=== PATIENT | male | born 1995 | race African-American/Black ===

== ENCOUNTER 2016-12-10 17:13 | Emergency (ER) | payer OTHER ==
[2016-12-10 17:40] VITALS: TEMP 97.9; BMI 16.7
[2016-12-10] MEDS ORDERED: ONDANSETRON 4 MG/2 ML VIAL IVPB ONE (18:36)
[2016-12-10] MEDS ORDERED: SODIUM CHLORIDE 1,000 ML IV STA (18:36)
--- NOTE | 2016-12-10 18:36 | PDOC ---
History of Present Illness - History of Present Illness Initial Comments: 12/10/16 18:39 The patient is a 21 year old male, with a significant past medical history of asthma, who presents to the emergency department with nausea, vomiting, and diarrhea since this morning. The patient reports over 10 episodes of vomit today. He denies noticing blood in his vomit. He also reports at least 5 episodes of watery, brown diarrhea. He denies any sick contacts. He denies chest pain, shortness of breath, headache and dizziness. He denies fever, chills, and constipation. He denies dysuria, frequency, urgency and hematuria. Allergies: NKDA Past surgical history: appendectomy (2016), benign brain tumor removal (2007) Social history: denies toxic habits PCP - Dr. Neda Crane <Alfreda Cleveland - Last Filed: 12/10/16 18:47> <Gladis Combs - Last Filed: 12/10/16 20:46> - General Chief Complaint: Pain, Acute Stated Complaint: NAUSEA/VOMITING Time Seen by Provider: 12/10/16 18:01 Past History <Alfreda Cleveland - Last Filed: 12/10/16 18:47> - Past Medical History Asthma: Yes Thyroid Disease: No - Surgical History Appendectomy: Yes - Psycho/Social/Smoking Cessation Hx Anxiety: No Suicidal Ideation: No Smoking History: Never smoked Have you smoked in the past 12 months: No Hx Alcohol Use: No Drug/Substance Use Hx: No Substance Use Type: None <Gladis Combs - Last Filed: 12/10/16 20:46> - Past Medical History Allergies/Adverse Reactions: Allergies Allergy/AdvReac Type Severity Reaction Status Date / Time cefaclor [From [facility]] Allergy Verified 12/10/16 17:40 Home Medications: Ambulatory Orders NK [No Known Home Medication] 12/10/16 Review of Systems - Review of Systems Able to Perform ROS?: Yes Comments:: 12/10/16 18:39 CONSTITUTIONAL: Absent: fever, chills, diaphoresis, generalized weakness, malaise, loss of appetite HEENT: Absent: rhinorrhea, nasal congestion, throat pain, throat swelling, difficulty swallowing, mouth swelling, ear pain, eye pain, visual Changes CARDIOVASCULAR: Absent: chest pain, syncope, palpitations, irregular heart rate, lightheadedness , peripheral edema RESPIRATORY: Absent: cough, shortness of breath, dyspnea with exertion, orthopnea, wheezing, stridor, hemoptysis GASTROINTESTINAL: (+) abdominal pain, nausea, vomiting, diarrhea. Absent: abdominal distension, constipation, melena, hematochezia GENITOURINARY: Absent: dysuria, frequency, urgency, hesitancy, hematuria, flank pain, genital pain MUSCULOSKELETAL: Absent: myalgia, arthralgia, joint swelling SKIN: Absent: rash, itching, pallor HEMATOLOGIC/IMMUNOLOGIC: Absent: easy bleeding, easy bruising, lymphadenopathy, frequent infections ENDOCRINE: Absent: unexplained weight gain, unexplained weight loss, heat intolerance, cold intolerance NEUROLOGIC: Absent: headache, focal weakness or paresthesias, dizziness, unsteady gait, seizure, mental status changes, bladder or bowel incontinence PSYCHIATRIC: Absent: anxiety, depression, suicidal or homicidal ideation, hallucinations. <Alfreda Cleveland - Last Filed: 12/10/16 18:47> *Physical Exam - Vital Signs Last Vital Signs Temp Pulse Resp BP Pulse Ox 97.9 F 43 L 16 136/77 98 12/10/16 17:35 12/10/16 17:35 12/10/16 17:35 12/10/16 17:35 12/10/16 17:35 - Physical Exam Comments: 12/10/16 18:40 GENERAL: Well developed, well nourished. Awake and alert. No acute distress. HEENT: (+) Dry mucous membranes. Normocephalic, atraumatic. PERRLA, EOMI. No conjunctival pallor. Sclera are non-icteric. Oropharynx is clear. NECK: Supple. Full ROM. No JVD. Carotid pulses 2+ and symmetric, without bruits. No thyromegaly. No lymphadenopathy. CARDIOVASCULAR: (+) slightly tachycardic rate and normal rhythm. No murmurs, rubs, or gallops. Distal pulses are 2+ and symmetric. PULMONARY: No evidence of respiratory distress. Lungs clear to auscultation bilaterally. No wheezing, rales or rhonchi. ABDOMINAL: Non-tender. Soft. Non-distended. No rebound or guarding. No organomegaly. Normoactive bowel sounds. MUSCULOSKELETAL Normal range of motion at all joints. No bony deformities or tenderness. No CVA tenderness. EXTREMITIES: No cyanosis. No clubbing. No edema. No calf tenderness. SKIN: Warm and dry. Normal capillary refill. No rashes. No jaundice. NEUROLOGICAL: Alert, awake, appropriate. Cranial nerves 2-12 intact. Normoreflexic in the upper and lower extremities. Normal speech. Toes are down-going bilaterally. Gait is normal without ataxia. PSYCHIATRIC: Cooperative. Good eye contact. Appropriate mood and affect. <Alfreda Cleveland - Last Filed: 12/10/16 18:47> - Vital Signs Last Vital Signs Temp Pulse Resp BP Pulse Ox 97.9 F 43 L 16 136/77 98 12/10/16 17:35 12/10/16 17:35 12/10/16 17:35 12/10/16 17:35 12/10/16 17:35 <Gladis Combs - Last Filed: 12/10/16 20:46> ED Treatment Course - LABORATORY CBC & Chemistry Diagram: 12/10/16 18:50 12/10/16 18:50 <Gladis Combs - Last Filed: 12/10/16 20:46> *DC/Admit/Observation/Transfer - Attestations Scribe Attestion: 12/10/16 18:40 Documentation prepared by Alfreda Cleveland, acting as ophthalmic medical technician for Gladis Combs MD <Alfreda lCeveland - Last Filed: 12/10/16 18:47> <Gladis Combs - Last Filed: 12/10/16 20:46> Diagnosis at time of Disposition: Gastroenteritis - Discharge Dispostion Disposition: HOME Condition at time of disposition: Stable - Referrals Referrals: Neda Crane MD [Primary Care Provider] - - Patient Instructions Printed Discharge Instructions: DI for Viral Gastroenteritis -- Adult Additional Instructions: please advance your diet as tolerated return for worsening symptom or high fever
[2016-12-10] MEDS ORDERED: ONDANSETRON 4 MG/2 ML VIAL ONE (18:51)
[2016-12-10 19:02] LABS: BASOPHIL 0.7 % (0-2.0); EOSINOPHIL 0.3 % (0-4.5); MCH 30.3 pg (25.7-33.7); MCHC 33.6 g/dl (32.0-35.9); MEAN CELL VOLUME 90.3 fl (80-96); MEAN PLT VOLUME 10.8 fl (7.5-11.1); PLATELET COUNT 187 K/MM3 (134-434); RDW 13.9 % (11.9-15.9)
[2016-12-10 19:33] LABS: ALBUMIN 4.5 g/dl (3.4-5.0); ALK PHOS 58 U/L (45-117); ANION GAP 12 (8-16); BILIRUBIN,TOTAL 0.5 mg/dL (0.2-1.0); CALCIUM 9.6 mg/dL (8.5-10.1); CO2 27 mmol/L (21-32); CREATININE 0.9 mg/dL (0.7-1.3); GLUCOSE,RANDOM 97 mg/dL (74-106); SGOT/AST 16 U/L (15-37); SGPT/ALT 21 U/L (12-78); TOT PROT 7.7 g/dl (6.4-8.2)
[2016-12-10 20:56] VITALS: BP 132/75; PULSE 58
== END 2016-12-10 20:57 | disposition home or self-care (01) ==
LOC: JER 17:13
PROC: 3E0337Z Introduction of Electrolytic and Water Balance Substance into Peripheral Vein, Percutaneous Approach (ICD-10-PCS; principal; 2016-12-10)
PROC: 3E033GC Introduction of Other Therapeutic Substance into Peripheral Vein, Percutaneous Approach (ICD-10-PCS; 2016-12-10)
DX: K52.9 Noninfective gastroenteritis and colitis, unspecified (principal)
CPT/HCPCS: 36415; 80053; 83690; 85025; 96361; 96374; 99284-25

== ENCOUNTER 2017-09-27 13:20 | Observation (INO) | payer OTHER ==
[2017-09-27] MEDS ORDERED: ONDANSETRON *ODT* 4 MG TABLET ONE (13:33)
[2017-09-27] MEDS ORDERED: METOCLOPRAMIDE HCL INJECTION 10 MG/2 ML VIAL IVPUSH ONE (15:00)
[2017-09-27] MEDS ORDERED: SODIUM CHLORIDE 1,000 ML IV STA ×2 (15:00→16:41)
[2017-09-27] MEDS ORDERED: ONDANSETRON 4 MG/2 ML VIAL IVPB ONE ×2 (15:07→16:41)
[2017-09-27] MEDS ORDERED: METOCLOPRAMIDE HCL INJECTION 10 MG/2 ML VIAL ONE (15:08)
--- NOTE | 2017-09-27 15:09 | PDOC ---
History of Present Illness - General Chief Complaint: Vomiting/Diarrhea Stated Complaint: VOMITING Time Seen by Provider: 09/27/17 14:27 - History of Present Illness Initial Comments: 09/27/17 15:08 21 yo M with h/o recurrent emesis who presents with vomitting. Patient reports acute onset of N/V this AM with 10 + episode of non biliary non bloody emesis this AM. Also endorses 3 + episodes of loose watery stools this AM with no blood or dark stools visualized. No abdominal pain, postprandial pain, but endorses decreased appetite.Symptoms nor relived with hot showers. Denies fevers /chills dysuria, hematuria, abdominal pain, chest pain, SOB, lightheadedness, LOC. Endorses recreational marijuana use. Denies other illicit drug use. Denies alcohol use. Denies recent travel, hiking, camping, or recent sick contacts. Denies illicit drug use. H/o prior ED visits for N/V, Abdominal pain. States that he has been seen by GI in past. Past History - Past Medical History Allergies/Adverse Reactions: Allergies Allergy/AdvReac Type Severity Reaction Status Date / Time cefaclor [From [facility]] Allergy Verified 12/10/16 17:40 Home Medications: Ambulatory Orders NK [No Known Home Medication] 12/10/16 Asthma: Yes Thyroid Disease: No - Surgical History Appendectomy: Yes - Suicide/Smoking/Psychosocial Hx Smoking History: Never smoked Have you smoked in the past 12 months: No Information on smoking cessation initiated: No Hx Alcohol Use: No Drug/Substance Use Hx: No Substance Use Type: None Review of Systems - Review of Systems Comments:: 09/27/17 15:11 GENERAL/CONSTITUTIONAL: No fever or chills. No weakness. HEAD, EYES, EARS, NOSE AND THROAT: No change in vision. No ear pain or discharge. No sore throat.- CARDIOVASCULAR: No chest pain or shortness of breath RESPIRATORY: No cough, wheezing, or hemoptysis. GASTROINTESTINAL: + nausea, vomiting, and diarrhea. No constipation. GENITOURINARY: No dysuria, frequency, or change in urination. MUSCULOSKELETAL: No joint or muscle swelling or pain. No neck or back pain. SKIN: No rash NEUROLOGIC: No headache, vertigo, loss of consciousness, or change in strength/ sensation. ENDOCRINE: No increased thirst. No abnormal weight change HEMATOLOGIC/LYMPHATIC: No anemia, easy bleeding, or history of blood clots. ALLERGIC/IMMUNOLOGIC: No hives or skin allergy. *Physical Exam - Vital Signs Last Vital Signs Temp Pulse Resp BP Pulse Ox 98.3 F 45 L 20 134/74 100 09/27/17 13:45 09/27/17 13:45 09/27/17 13:45 09/27/17 13:45 09/27/17 13:45 - Physical Exam Comments: 09/27/17 15:12 GENERAL: Awake, alert, and fully oriented, in no acute distress HEAD: No signs of trauma, normocephalic, atraumatic EYES: PERRLA, EOMI, sclera anicteric, conjunctiva clear ENT: Auricles normal inspection, hearing grossly normal, nares patent, oropharynx clear without exudates. Moist mucosa NECK: Normal ROM, supple, no lymphadenopathy, JVD, or masses LUNGS: No distress, speaks full sentences, clear to auscultation bilaterally HEART: Regular rate and rhythm, normal S1 and S2, no murmurs, rubs or gallops, peripheral pulses normal and equal bilaterally. ABDOMEN: Soft, nontender, normoactive bowel sounds. No guarding, no rebound. No masses. Neg CVA ttp. Neg suprapubic ttp. EXTREMITIES : Normal inspection, Normal range of motion, no edema. No clubbing or cyanosis. SKIN: Warm, Dry, normal turgor, no rashes or lesions noted. ED Treatment Course - LABORATORY CBC & Chemistry Diagram: 09/27/17 16:40 09/27/17 16:40 Medical Decision Making - Medical Decision Making 09/27/17 16:18 21 yo M with h/o recurrent emesis who presents with acute onset of N/V this AM with 10 + episode of non biliary non bloody emesis this AM. Also endorses 3 + episodes of loose watery stools this AM with no blood or dark stools visualized. No abdominal pain, postprandial pain, but endorses decreased appetite. Denies fevers/chills dysuria, hematuria, abdominal pain, chest pain, SOB, lightheadedness, LOC. Physical exam benign with mild bradycardia ~P 47. Endorses recreational marijuana use. Will obtain basic labs to assess for electrolyte imbalance and infectious etiology or GI related cause to illness. S/ s most likely 2/2 to marijuana induced cyclical vomiting. There is low suspicion for more serious pathology given benign physical exam, absence of abdominal pain. Do not suspect PUD, mesenteric ischemia, IBD. ED Course: CBC, CMP, Lipase, UA, EKG, urine tox 09/27/17 16:32 NS 1 L, Regaln 10 mg, Zofran 4 mg, Diphendhyrdamie 25 mg. 09/27/17 18:25 Pt. no longer vomiting, but will PO challenge. 09/27/17 19:00 Continues to vomit.Will give compazine and microblog admitting hospitalist. 09/27/17 20:[address] Jackson *DC/Admit/Observation/Transfer Diagnosis at time of Disposition: Nausea & vomiting Qualifiers: Vomiting type: unspecified Vomiting Intractability: non-intractable Qualified Code(s): R11.2 - Nausea with vomiting, unspecified - Discharge Dispostion Admit: Yes - Referrals - Patient Instructions - Post Discharge Activity
--- NOTE | 2017-09-27 16:42 | PDOC ---
Attending Attestation - Resident Resident Name: Elias Loaiza - ED Attending Attestation I have performed the following: I have examined & evaluated the patient, The case was reviewed & discussed with the resident, I agree w/resident's findings & plan - HPI HPI: 09/27/17 16:40 20-year-old male with a history of recurrent vomiting over the past year. Patient states he smokes marijuana daily. He now comes in complaining of 10 episodes of nonbilious, nonbloody vomiting today and 2 episodes of minor diarrhea. He denies any abdominal pain. He denies any fever. - Physicial Exam PE: 09/27/17 16:41 On examination, the patient complains of nausea. His abdomen is soft, nontender , without guarding or rebound. There is no flank tenderness. Vital signs are normal with the exception of bradycardia, which is chronic for him based on prior visits. 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 Rule out other pathology. Laboratory studies ordered. Symptomatic therapy with antiemetics and fluids ordered. Patient will be reevaluated post lab results with repeat abdominal examination.
[2017-09-27] MEDS ORDERED: ONDANSETRON 4 MG/2 ML VIAL ONE (16:45)
[2017-09-27 17:03] LABS: BASOPHIL 0.2 % (0-2.0); EOSINOPHIL 0.1 % (0-4.5); MCH 30.7 pg (25.7-33.7); MCHC 33.7 g/dl (32.0-35.9); MEAN CELL VOLUME 91.2 fl (80-96); NEUTROPHILS 87.8 % (42.8-82.8); PLATELET COUNT 180 K/MM3 (134-434); RDW 13.6 % (11.9-15.9)
[2017-09-27 17:44] LABS: ALBUMIN 4.1 g/dl (3.4-5.0); ALK PHOS 58 U/L (45-117); ANION GAP 7 (8-16); BILIRUBIN,TOTAL 0.4 mg/dL (0.2-1.0); CALCIUM 8.4 mg/dL (8.5-10.1); CO2 25 mmol/L (21-32); CREATININE 0.9 mg/dL (0.7-1.3); GLUCOSE,RANDOM 97 mg/dL (74-106); SGOT/AST 13 U/L (15-37); SGPT/ALT 22 U/L (12-78)
[2017-09-27] MEDS ORDERED: PROCHLORPERAZINE INJECTION 10 MG/2 ML VIAL IVPB ONE (18:59)
[2017-09-27] MEDS ORDERED: PROCHLORPERAZINE INJECTION 10 MG/2 ML VIAL ONE (20:08)
--- NOTE | 2017-09-27 20:10 | HP ---
CHIEF COMPLAINT: nausea, vomiting PCP: none HISTORY OF PRESENT ILLNESS: 21 yr old with pmhx of "chrondroma" presents with nausea and continuous vomiting since 5am this morning associated with diffuse abdominal pain. He at Thanksgiving dinner night without difficulty, including ham, potatoes, dairy products. denies raw or new food. also has 3 nonbloody watery bowel movements early this morning with no repeat BMs. abdominal pain is worse with palpation, not related to movement, continuous, nonradiation. No others family members with similar symptoms. He completed 7 day course of amoxicillin 2wks ago for tooth infection. ER course was notable for: (1) reglan + compezine (2) LUQ sono without gallstones/cbd Recent Travel: spent one week in [place] two months ago, denies any bug bites, raw/ new foods. PAST MEDICAL HISTORY: hx of alecia, dx'd at age 14, underwent intranasal procedure to remove chondroma , was followed with serial head CT's until 2 years ago when he was cleared and told no further follow-up was necessary as per chart patient review patient had an appendectomy in 02/2016 at [facility] PAST SURGICAL HISTORY: "transphenoidal" surgery at age 14 Social History: Smokin-4 cigs/day occasionally since age 14 Alcohol: denies Drugs: denied to this interviewer, however as per ED, he admits to smoking marijuana regularily and recently Family History: paternal great-grandmother with unknown type of cancer Allergies cefaclor [From Ce[facility]] Allergy (Verified 12/10/16 17:40) HOME MEDICATIONS: Home Medications Medication Instructions Recorded NK [No Known Home Medication] 12/10/16 REVIEW OF SYSTEMS CONSTITUTIONAL: Present: unintentional weight loss Absent: fever, chills, diaphoresis, generalized weakness, malaise, loss of appetite HEENT: Absent: rhinorrhea, nasal congestion, throat pain, throat swelling, difficulty swallowing, mouth swelling, ear pain, eye pain, visual changes CARDIOVASCULAR: Absent: chest pain, syncope, palpitations, irregular heart rate, lightheadedness , peripheral edema RESPIRATORY: Absent: cough, shortness of breath, dyspnea with exertion, orthopnea, wheezing, stridor, hemoptysis GASTROINTESTINAL: Present: abdominal pain, nausea, vomiting, diarrhea, Absent: abdominal distension, constipation, melena, hematochezia GENITOURINARY: Absent: dysuria, frequency, urgency, hesitancy, hematuria, flank pain, genital pain MUSCULOSKELETAL: Absent: myalgia, arthralgia, joint swelling, back pain, neck pain SKIN: Absent: rash, itching, pallor HEMATOLOGIC/IMMUNOLOGIC: Absent: easy bleeding, easy bruising, lymphadenopathy, frequent infections ENDOCRINE: Absent: unexplained weight gain, unexplained weight loss, heat intolerance, cold intolerance NEUROLOGIC: Absent: headache, focal weakness or paresthesias, dizziness, unsteady gait, seizure, mental status changes, bladder or bowel incontinence PHYSICAL EXAMINATION Vital Signs - 24 hr 09/27/17 13:45 Temperature 98.3 F Pulse Rate 45 L Respiratory 20 Rate Blood Pressure 134/74 O2 Sat by Pulse 100 Oximetry (%) GENERAL: Awake, alert, and fully oriented, in no acute distress. HEAD: Normal with no signs of trauma. EYES: Pupils equal, round and reactive to light, extraocular movements intact, sclera anicteric, conjunctiva clear. No lid lag. EARS, NOSE, THROAT: Ears normal, nares patent, oropharynx clear without exudates. Moist mucous membranes. NECK: Normal range of motion, supple without lymphadenopathy, JVD, or masses. LUNGS: Breath sounds equal, clear to auscultation bilaterally. No wheezes, and no crackles. No accessory muscle use. HEART: Regular rate and rhythm, normal S1 and S2 without murmur, rub or gallop. ABDOMEN: Soft, diffusely tender with light palpation, not distended, normoactive bowel sounds, +guarding, no masses. MUSCULOSKELETAL: Normal range of motion at all joints. No bony deformities or tenderness. No CVA tenderness. UPPER EXTREMITIES: 2+ radial pulses, warm, well-perfused. No cyanosis. No clubbing. No peripheral edema. LOWER EXTREMITIES: 2+ DP pulses, warm, well-perfused. No calf tenderness. No peripheral edema. NEUROLOGICAL: Cranial nerves II-XII intact. Normal speech. facial symmetry, 5/ 5 hand ship self defense system mk1 operator and plantar flexion PSYCHIATRIC: agitated, uncomfortable, SKIN: Warm, dry, normal turgor, no rashes or lesions noted, normal capillary refill. Laboratory Results - last 24 hr 09/27/17 09/27/17 09/27/17 16:40 16:40 16:58 WBC 12.0 H RBC 4.43 Hgb 13.6 Hct 40.4 MCV 91.2 MCH 30.7 MCHC 33.7 RDW 13.6 Plt Count 180 MPV 10.0 Neutrophils % 87.8 H Lymphocytes % 7.0 L D Monocytes % 4.9 Eosinophils % 0.1 Basophils % 0.2 Sodium 139 Potassium 4.1 Chloride 107 Carbon Dioxide 25 Anion Gap 7 L BUN 11 D Creatinine 0.9 Creat Clearance w eGFR > 60 Random Glucose 97 Calcium 8.4 L Total Bilirubin 0.4 AST 13 L ALT 22 Alkaline Phosphatase 58 Total Protein 7.0 Albumin 4.1 Lipase 123 ASSESSMENT/PLAN: 21 yr old man presents with intractable nausea and vomiting with several episodes in the ED placed on further evaluation. as per chart review patient has been seen in ed for repeat episodes of cyclic vomiting, differential includes secondary to marijuana use - urine toxicology pending to r/o other substance use withdrawal as cause of vomiting, gastroenteritis. #vomiting - npo while vomiting, clear liquid po challenge in the AM - repeat EKG with receiving Qtc prolonging anti-emetics, - LUQ u/s negative for liver pathology, cholecystitis/cholelithiasis as cause - IVF NS @150cc/hr - repeat electrolytes to replete if decreased due to vomiting #DVT - anticipate short stay, encourage ambulation, low risk #Diet - npoo overnight with clear liquid challenge in the AM #Dispo: cutch cleaner likely discharge if vomiting resolves and patient can tolerate po Visit type - Emergency Visit Emergency Visit: Yes ED Registration Date: 09/27/17 Care time: The patient presented to the Emergency Department on the above date and was hospitalized for further evaluation of their emergent condition. - New Patient This patient is new to me today: Yes Date on this admission: 09/27/17 - Critical Care Critical Care patient: No
[2017-09-27] MEDS ORDERED: SODIUM CHLORIDE 1,000 ML IV SCH (20:15)
--- NOTE | 2017-09-27 23:45 | PN ---
Teaching Attending Note Name of Resident: Philipp Vergara ATTENDING PHYSICIAN STATEMENT I saw and evaluated the patient. I reviewed the resident's note and discussed the case with the resident. I agree with the resident's findings and plan as documented. SUBJECTIVE: OBJECTIVE: ASSESSMENT AND PLAN: this is a 21 yr old male without any medical hx presented intractable vomiting, without any fever, chills. the patient stated he was in a good state of health until this morning plan: admit the patient to obs ivf hydration anti-emitics monitor QTC while on antiemetic
[2017-09-28 02:03] VITALS: BP 113/48; PULSE 47; TEMP 99.3
[2017-09-28 02:33] VITALS: BMI 17.4
[2017-09-28 07:23] LABS: BASOPHIL 0.4 % (0-2.0); EOSINOPHIL 0.8 % (0-4.5); MCH 30.7 pg (25.7-33.7); MCHC 33.7 g/dl (32.0-35.9); MEAN CELL VOLUME 91.1 fl (80-96); NEUTROPHILS 65.9 % (42.8-82.8); PLATELET COUNT 180 K/MM3 (134-434); RDW 13.7 % (11.9-15.9); WHITE BLOOD COUNT 12.1 K/mm3 (4.0-10.0)
[2017-09-28 08:11] LABS: ALBUMIN 3.6 g/dl (3.4-5.0); ALK PHOS 52 U/L (45-117); ANION GAP 10 (8-16); BILIRUBIN,TOTAL 1.2 mg/dL (0.2-1.0); CO2 22 mmol/L (21-32); CREATININE 0.8 mg/dL (0.7-1.3); GLUCOSE,RANDOM 84 mg/dL (74-106); MAGNESIUM 1.8 mg/dL (1.8-2.4); PHOSPHOROUS 2.9 mg/dL (2.5-4.9); SGOT/AST 12 U/L (15-37); SGPT/ALT 18 U/L (12-78); TOT PROT 6.3 g/dl (6.4-8.2)
--- NOTE | 2017-09-28 08:13 | DS ---
Physical Examination Vital Signs: Vital Signs Temperature 99.3 F 09/28/17 02:02 Pulse Rate 47 L 09/28/17 02:02 Respiratory Rate 20 09/28/17 02:02 Blood Pressure 113/48 09/28/17 02:02 O2 Sat by Pulse Oximetry (%) 97 09/28/17 04:09 Labs: CBC, BMP 09/28/17 06:38 Discharge Summary Reason For Visit: VOMITING - Instructions Disposition: AGAINST MEDICAL ADVICE - Home Medications Comprehensive Discharge Medication List: Ambulatory Orders NK [No Known Home Medication] 12/10/16
[2017-09-28 09:46] LABS: URINE APPEARANCE CLEAR; URINE BILIRUBIN NEGATIVE (NEGATIVE); URINE BLOOD NEGATIVE (NEGATIVE); URINE COLOR LTYELLOW; URINE GLUCOSE (UA) NEGATIVE (NEGATIVE); URINE KETONE 1+ (NEGATIVE); URINE NITRITE NEGATIVE (NEGATIVE); URINE PROTEIN NEGATIVE (NEGATIVE); URINE UROBILINOGEN NEGATIVE mg/dL (0.2-1.0)
[2017-09-28 11:32] LABS: URINE MARIJUANA THC POSITIVE ng/ml (CUTOFF=50)
[2017-09-28 14:28] LABS: URINE LEUK ESTERASE Negative (NEGATIVE)
== END 2017-09-28 07:35 | disposition left against medical advice (07) ==
LOC: JER 13:20 → JERBED 19:35 → J6S 21:49
PROVIDERS: ADMIT Internal Medicine; ATTEND Registered Nurse
PROC: 3E033GC Introduction of Other Therapeutic Substance into Peripheral Vein, Percutaneous Approach (ICD-10-PCS; principal; 2017-09-27)
PROC: 3E0337Z Introduction of Electrolytic and Water Balance Substance into Peripheral Vein, Percutaneous Approach (ICD-10-PCS; 2017-09-27)
DX: R11.2 Nausea with vomiting, unspecified (principal); Z88.8 Allergy status to other drugs, medicaments and biological substances
CPT/HCPCS: 36415; 76705-TC; 80053; 80307; 81003; 83690; 83735; 84100; 84443; 85025; 96361; 96374; 96375; 96376; 99283-25; G0378

== ENCOUNTER 2017-09-29 11:56 | Emergency (ER) | payer OTHER ==
[2017-09-29 12:06] VITALS: BMI 17.9
[2017-09-29] MEDS ORDERED: ONDANSETRON 4 MG/2 ML VIAL ONE (12:08)
--- NOTE | 2017-09-29 12:09 | PDOC ---
History of Present Illness - General Chief Complaint: Nausea/Vomiting Stated Complaint: NAUSEA/VOMITING Time Seen by Provider: 09/29/17 12:09 - History of Present Illness Initial Comments: 09/29/17 14:18 21yo man with h/o recurrent emesis who presents today with nausea, continuous NBNB emesis associated with diffuse abdominal pain and 1xepisode of non-bloody, watery diarrhea. He was here on Saturday for similar presentation, admitted to Hospitalist service, but left AMA on Saturday when symptoms improved. LUQ ultrasound (09/27) found no acute pathology (no cholethiliasis or dilated CBD). He returned this morning when started to have nausea and several NBNB emesis. He denied drug use to this interviewer, but has admitted recreational marijuana use to other interviewers. Urine Tox (09/28/17) was +THC. No fever or chills. No others family members with similar symptoms. Allergies: NKDA Past surgical history: appendectomy (2015), benign brain tumor removal (2007) Social history: denies toxic habits PCP - Dr. Neda Crane 09/29/17 21:41 Past History - Past Medical History Allergies/Adverse Reactions: Allergies Allergy/AdvReac Type Severity Reaction Status Date / Time cefaclor [From [facility]] Allergy Verified 09/29/17 12:06 Home Medications: Ambulatory Orders Ondansetron [Zofran Odt -] 4 mg SL TID PRN #21 od.tablet 09/29/17 Asthma: Yes COPD: No Thyroid Disease: No Other medical history: brain tumor - Surgical History Appendectomy: Yes Neurologic Surgery: Yes (Tumor Removal 2007) - Suicide/Smoking/Psychosocial Hx Smoking History: Never smoked Have you smoked in the past 12 months: No Hx Alcohol Use: No Drug/Substance Use Hx: No Substance Use Type: Marijuana *Physical Exam - Vital Signs Last Vital Signs Temp Pulse Resp BP Pulse Ox 99.3 F 78 18 130/60 98 09/29/17 12:04 09/29/17 12:04 09/29/17 12:04 09/29/17 12:04 09/29/17 12:04 - Physical Exam General Appearance: Yes: Nourished, Appropriately Dressed HEENT: positive: EOMI, RICCI, Normal ENT Inspection Respiratory/Chest: positive: Lungs Clear, Normal Breath Sounds Cardiovascular: positive: Regular Rhythm, Regular Rate, S1, S2 Gastrointestinal/Abdominal: positive: Soft, Other ((+)mild epigastric tenderness ) Musculoskeletal: negative: CVA Tenderness Extremity: positive: Normal Inspection Integumentary: positive: Normal Color Neurologic: positive: Fully Oriented, Alert Heart Score/ECG Review - ECG Impressions Comment:: 09/29/17 21:24 Sinus bradycardia, rate 46, normal axis, non-specific ST elevations unchanged from prior 02/16/16, QTc 372. 09/29/17 22:40 ED Treatment Course - LABORATORY CBC & Chemistry Diagram: 09/29/17 12:28 09/29/17 12:28 Medical Decision Making - Medical Decision Making 09/29/17 15:21 21yo man with recurrent emesis, s/p appendectomy 2016, who presents with continuous NBNB emesis, 1x watery, non-bloody diarrhea, and diffuse abdominal pain. Abd/pelvis CT here in 2016 was negative for acute pathology. Ddx includues , but not limited to cyclic vomiting syndrome 2/2 cannabis-use vs pancreatitis vs gastroenteritis vs colitis. Will treat symptomatically for now: -IVF -Reglan, Zofran -IVF 1L 09/29/17 15:27 Lipase wnl. WBC of 11K. Will continue to monitor with serial abdominal exams. 09/29/17 17:17 Continues to have abdominal pain s/p Benadryl and 2mg Morphine IVP. Will do abd/pelvic imaging to r/o acute intrabdominal pathology. Patient refused IV contrast because his "body reacts badly to contrast" and has vomited after receiving IV contrast. Patient made aware of limitations of not getting IV contrast. 09/29/17 21:06 As of around 5PM the patient has had no further episodes of emesis, but continues to c/o nausea and abdominal pain. However, on physical exam his abdomen is soft with only mild tenderness in epigastric region. Preliminary report of CT abd/pelvis is unrevealing with no e/o pancreatitis, SBO, or mass. Pancreatitis unlikely given normal lipase and imaging results. Likely etiology of symptoms is cannabis induced cyclic vomiting syndrome. -Will give an 1L bolus and plan for discharge home. 09/29/17 21:23 *DC/Admit/Observation/Transfer Diagnosis at time of Disposition: Cyclical vomiting syndrome - Discharge Dispostion Disposition: HOME Condition at time of disposition: Stable Admit: No - Prescriptions Prescriptions: Ondansetron [Zofran Odt -] 4 mg SL TID PRN #21 od.tablet PRN Reason: Nausea And/Or Vomiting - Referrals Referrals: Neda Crane MD [Non Staff, Medical] - - Patient Instructions Additional Instructions: Please follow-up with your primary care physician within 1-2 weeks. You may continue to have some nausea/vomiting for the next few days. Take Zofran as directed every 4-6 hours as needed for nausea and/or vomiting. Advance your diet as tolerated. Please return to the emergency department if you have new, worsening, or concerning symptoms. - Post Discharge Activity
[2017-09-29 12:35] LABS: BASOPHIL 0.3 % (0-2.0); EOSINOPHIL 1.5 % (0-4.5); MCH 30.5 pg (25.7-33.7); MCHC 33.2 g/dl (32.0-35.9); MEAN CELL VOLUME 91.9 fl (80-96); MEAN PLT VOLUME 9.9 fl (7.5-11.1); NEUTROPHILS 73.7 % (42.8-82.8); PLATELET COUNT 188 K/MM3 (134-434); RDW 13.7 % (11.9-15.9)
[2017-09-29] MEDS ORDERED: ONDANSETRON 4 MG/2 ML VIAL IVPB ONE (12:42)
[2017-09-29 13:00] LABS: ALBUMIN 4.1 g/dl (3.4-5.0); ANION GAP 7 (8-16); BILIRUBIN,TOTAL 0.3 mg/dL (0.2-1.0); CALCIUM 8.6 mg/dL (8.5-10.1); CO2 27 mmol/L (21-32); CREATININE 0.9 mg/dL (0.7-1.3); GLUCOSE,RANDOM 88 mg/dL (74-106); PHOSPHOROUS 2.6 mg/dL (2.5-4.9); SGOT/AST 9 U/L (15-37); SGPT/ALT 21 U/L (12-78); TOT PROT 7.1 g/dl (6.4-8.2)
[2017-09-29 13:01] LABS: ALK PHOS 57 U/L (45-117)
[2017-09-29 13:18] LABS: MAGNESIUM 2.1 mg/dL (1.8-2.4)
[2017-09-29] MEDS ORDERED: METOCLOPRAMIDE HCL INJECTION 10 MG/2 ML VIAL IVPUSH ONE ×2 (14:04→19:24)
[2017-09-29] MEDS ORDERED: ACETAMINOPHEN 1000 MG/100 ML VIAL (NON FORMULARY) IVPB ONE (14:04)
[2017-09-29] MEDS ORDERED: METOCLOPRAMIDE HCL INJECTION 10 MG/2 ML VIAL ONE ×2 (14:06→19:51)
[2017-09-29] MEDS ORDERED: ACETAMINOPHEN INJECTION 100 ML IVPB ONE (14:06)
--- NOTE | 2017-09-29 14:41 | PDOC ---
Attending Attestation - Resident Resident Name: Юлия Moses - ED Attending Attestation I have performed the following: I have examined & evaluated the patient, The case was reviewed & discussed with the resident, I agree w/resident's findings & plan, Exceptions are as noted - HPI HPI: 09/29/17 14:41 21yo M hx of appendectomy, recurrent emesis, recently left AMA yesterday for the same p/w multiple episoides of NBNB emesis a/w non bloody, watery diarrhea and diffuse abd pain since this morning. Pt had similar sxs Saturday into Saturday morning and left AMA after feeling better. Utox from yesterday positive for THC, pt reports smoking marijuana a few days ago. Denies headache, CP, SOB, weakness, dizziness, LE edema. - Physicial Exam PE: 09/29/17 14:52 GENERAL: Awake, alert, and fully oriented, appears uncomfortable HEAD: No signs of trauma EYES: PERRLA, EOMI, sclera anicteric, conjunctiva clear ENT: Auricles normal inspection, hearing grossly normal, nares patent, oropharynx clear without exudates. Moist mucosa NECK: Normal ROM, supple, no lymphadenopathy, JVD, or masses LUNGS: Breath sounds equal, clear to auscultation bilaterally. No wheezes, and no crackles HEART: Regular rate and rhythm, normal S1 and S2, no murmurs, rubs or gallops ABDOMEN: diffusely tender, worse in the epigastric area. no rebound or guarding. No distention EXTREMITIES: Normal range of motion, no edema. No clubbing or cyanosis. No cords, erythema, or tenderness NEUROLOGICAL: Normal speech, cranial nerves intact, negative pronator drift, 5/ 5 strength in all 4 extremities, normal sensation to light touch in all 4 extremities, normal cerebellar exam, normal gait, normal reflexes and tone SKIN: Warm, Dry, normal turgor, no rashes or lesions noted. - Medical Decision Making 09/29/17 15:01 21-year-old male with a history of recurrent emesis presents with recurrence of nausea, vomiting and diarrhea. Vitals are unremarkable. Exam with diffuse abdominal tenderness and epigastric pain. The patient reports having multiple CT scans for similar symptoms in the past and that they "never show anything." Differential includes but not limited to cyclical vomiting syndrome versus gastroenteritis versus colitis versus pancreatitis. Will check labs and provide symptomatic control. Will hold off on imaging and do serial abdominal exams given multiple negative CT scans in the past for similar sxs. If continues to be tender, will consider imaging.
[2017-09-29] MEDS ORDERED: morphine SULFATE 4 MG/ML VIAL ONE ×2 (16:33→19:51)
[2017-09-29] MEDS ORDERED: morphine CARPU-JECT 2 MG/1 ML DISP.SYRIN IVPUSH ONE ×2 (16:42→19:23)
[2017-09-29 17:57] VITALS: TEMP 98.2
[2017-09-29] MEDS ORDERED: MINERAL OIL/PETROLAT/WATER TOPICAL CREAM 113 GM JAR TP ONE (19:27)
[2017-09-29] MEDS ORDERED: SODIUM CHLORIDE 1,000 ML IV STA (20:41)
[2017-09-29 22:59] VITALS: BP 128/63; PULSE 51
--- NOTE | 2017-09-30 14:07 | EKG ---
Test Reason : Blood Pressure : / mmHG Vent. Rate : 046 BPM Atrial Rate : 046 BPM P-R Int : 150 ms QRS Dur : 098 ms QT Int : 426 ms P-R-T Axes : 054 077 068 degrees QTc Int : 372 ms SINUS BRADYCARDIA WITH SINUS ARRHYTHMIA INCOMPLETE RIGHT BUNDLE BRANCH BLOCK ST ELEVATION, CONSIDER EARLY REPOLARIZATION, PERICARDITIS, OR INJURY ABNORMAL ECG WHEN COMPARED WITH ECG OF 17-FEB-2016 13:01, T WAVE VARIATION Confirmed by BRAN TANG MD ([id number]) on 09/30/2017 2:07:35 PM Referred By: Confirmed By:BRAN TANG MD
== END 2017-09-29 23:21 | disposition home or self-care (01) ==
LOC: JER 11:56
PROC: 3E033NZ Introduction of Analgesics, Hypnotics, Sedatives into Peripheral Vein, Percutaneous Approach (ICD-10-PCS; principal; 2017-09-29)
PROC: 3E033GC Introduction of Other Therapeutic Substance into Peripheral Vein, Percutaneous Approach (ICD-10-PCS; 2017-09-29)
PROC: 3E0337Z Introduction of Electrolytic and Water Balance Substance into Peripheral Vein, Percutaneous Approach (ICD-10-PCS; 2017-09-29)
DX: G43.A0 Cyclical vomiting, in migraine, not intractable (principal)
CPT/HCPCS: 36415; 74176-TC; 80053; 83690; 83735; 84100; 85025; 93005; 93010; 96361; 96374; 96375; 99283-25

== ENCOUNTER 2017-09-30 09:22 | Inpatient (IN) | payer OTHER ==
[2017-09-30 09:29] VITALS: BMI 17.4
[2017-09-30] MEDS ORDERED: ONDANSETRON 4 MG/2 ML VIAL IVPB ONE (09:31)
[2017-09-30] MEDS ORDERED: SODIUM CHLORIDE 1,000 ML IV STA ×2 (09:31→11:39)
[2017-09-30] MEDS ORDERED: morphine CARPU-JECT 4 MG/1 ML DISP.SYRIN IVPUSH ONE (09:44)
[2017-09-30 10:07] LABS: BASOPHIL 0.3 % (0-2.0); EOSINOPHIL 0.6 % (0-4.5); MCH 30.4 pg (25.7-33.7); MCHC 33.8 g/dl (32.0-35.9); MEAN CELL VOLUME 90.1 fl (80-96); MEAN PLT VOLUME 9.7 fl (7.5-11.1); NEUTROPHILS 75.5 % (42.8-82.8); PLATELET COUNT 205 K/MM3 (134-434); RDW 13.6 % (11.9-15.9); WHITE BLOOD COUNT 10.7 K/mm3 (4.0-10.0)
[2017-09-30] MEDS ORDERED: ONDANSETRON 4 MG/2 ML VIAL ONE (10:17)
[2017-09-30] MEDS ORDERED: morphine SULFATE 4 MG/ML VIAL ONE (10:17)
--- NOTE | 2017-09-30 10:20 | PDOC ---
History of Present Illness - History of Present Illness Initial Comments: 09/30/17 10:43 21 year old male, with significant past medical history of appendectomy (2016), who was recently admitted on 09/27/17 for recurrent nausea, vomiting, and diarrhea but left AMA when symptoms resolved. He was also seen in the ED on with a markedly limited abdominal pelvic CT and was discharged with Zofran. The patient returns today with persistent episodes of nonbloody, nonbilious vomiting, diffuse abdominal pain, and loose watery stool. He states that he is unable to keep down the PO Zofran. The patient notes that he experienced similar symptoms last year around this time and was thought to have appendicitis; therefore, had an appendectomy. Denies fever, chills, nausea, vomiting. Denies dark, tarry, or bloody stools. Denies recent travel. Allergies: cefaclor <Zohra Wilson - Last Filed: 09/30/17 11:39> - General History Source: Patient Exam Limitations: No Limitations <Alexy Sher - Last Filed: 09/30/17 12:46> - General Chief Complaint: Pain Stated Complaint: VOMITING Time Seen by Provider: 09/30/17 09:29 Past History <Zohra Wilson - Last Filed: 09/30/17 11:39> - Past Medical History Asthma: Yes COPD: No Thyroid Disease: No - Surgical History Abdominal Surgery: Yes Appendectomy: Yes Neurologic Surgery: Yes (Tumor Removal 2007) - Suicide/Smoking/Psychosocial Hx Smoking History: Never smoked Have you smoked in the past 12 months: No Hx Alcohol Use: No Drug/Substance Use Hx: No Substance Use Type: None <Alexy Sher - Last Filed: 09/30/17 12:46> - Past Medical History Allergies/Adverse Reactions: Allergies Allergy/AdvReac Type Severity Reaction Status Date / Time cefaclor [From [facility]] Allergy Severe "throat Verified 09/30/17 09:27 swelling" Home Medications: Ambulatory Orders Ondansetron [Zofran Odt -] 4 mg SL TID PRN #21 od.tablet 09/29/17 Review of Systems - Review of Systems Able to Perform ROS?: Yes Comments:: 09/30/17 10:44 GENERAL/CONSTITUTIONAL: No fever or chills. No weakness. HEAD, EYES, EARS, NOSE AND THROAT: No change in vision. No ear pain or discharge. No sore throat. CARDIOVASCULAR: No chest pain or shortness of breath. RESPIRATORY: No cough, wheezing, or hemoptysis. GASTROINTESTINAL: +nausea, vomiting, loose stools, diffuse abdominal pain. GENITOURINARY: No dysuria, frequency, or change in urination. MUSCULOSKELETAL: No joint or muscle swelling or pain. No neck or back pain. SKIN: No rash NEUROLOGIC: No headache, vertigo, loss of consciousness, or change in strength/ sensation. ENDOCRINE: No increased thirst. No abnormal weight change. HEMATOLOGIC/LYMPHATIC: No anemia, easy bleeding, or history of blood clots. ALLERGIC/IMMUNOLOGIC: No hives or skin allergy. <Zohra Wilson - Last Filed: 09/30/17 11:39> *Physical Exam - Vital Signs Last Vital Signs Temp Pulse Resp BP Pulse Ox 98.4 F 87 18 125/67 99 09/30/17 09:27 09/30/17 09:27 09/30/17 09:27 09/30/17 09:27 09/30/17 09:27 - Physical Exam Comments: 09/30/17 10:44 GENERAL: Awake, alert, and fully oriented, in no acute distress HEAD: No signs of trauma EYES: PERRLA, EOMI, sclera anicteric, conjunctiva clear ENT: Auricles normal inspection, hearing grossly normal, nares patent, oropharynx clear without exudates. +dry mucous membranes NECK: Normal ROM, supple, no lymphadenopathy, JVD, or masses LUNGS: Breath sounds equal, clear to auscultation bilaterally. No wheezes, and no crackles HEART: Regular rate and rhythm, normal S1 and S2, no murmurs, rubs or gallops ABDOMEN: +Diffuse abdominal tenderness. Soft, normoactive bowel sounds. No guarding, no rebound. No masses EXTREMITIES: Normal range of motion, no edema. No clubbing or cyanosis. No cords, erythema, or tenderness NEUROLOGICAL: Cranial nerves II through XII grossly intact. Normal speech, normal gait SKIN: Warm, Dry, normal turgor, no rashes or lesions noted. <Zohra Wilson - Last Filed: 09/30/17 11:39> - Vital Signs Last Vital Signs Temp Pulse Resp BP Pulse Ox 98.4 F 87 18 125/67 99 09/30/17 09:27 09/30/17 09:27 09/30/17 09:27 09/30/17 09:27 09/30/17 09:27 <Alexy Sher - Last Filed: 09/30/17 12:46> Heart Score/ECG Review #1 ECG reviewed & interpreted by me at: 09:45 09/30/17 10:22 NSR 46, RSR' V2, J point elevationII, III, avF, V4-V6, ?pericarditis, QTC 383 msec <Alexy Sher - Last Filed: 09/30/17 12:46> ED Treatment Course - LABORATORY CBC & Chemistry Diagram: 09/30/17 10:00 09/30/17 10:00 - ADDITIONAL ORDERS Additional order review: Laboratory Results 09/30/17 10:00 PT with INR 14.30 H INR 1.27 H PTT (Actin FS) 34.7 H 09/30/17 10:00 RBC 4.81 MCV 90.1 MCHC 33.8 RDW 13.6 MPV 9.7 Neutrophils % 75.5 Lymphocytes % 16.2 Monocytes % 7.4 Eosinophils % 0.6 Basophils % 0.3 - Medications Given in the ED: ED Medications Discontinued Medications Generic Name Dose Route Start Last Admin Trade Name Kostasq PRN Reason Stop Dose Admin Sodium Chloride 1,000 mls @ 1,000 mls/hr 09/30/17 09:31 09/30/17 10:28 Normal Saline - IV 09/30/17 10:30 1,000 mls/hr ASDIR STA Administration Morphine Sulfate 4 mg 09/30/17 09:44 09/30/17 10:26 Morphine Injection - IVPUSH 09/30/17 09:45 4 mg ONCE ONE Administration Ondansetron HCl 4 mg 09/30/17 09:31 09/30/17 10:24 Zofran Injection IVPB 09/30/17 09:32 4 mg ONCE ONE Administration <Zohra Wilson - Last Filed: 09/30/17 11:39> - LABORATORY CBC & Chemistry Diagram: 09/30/17 10:00 09/30/17 10:00 <Alexy Sher - Last Filed: 09/30/17 12:46> Medical Decision Making - Medical Decision Making 09/30/17 10:06 A portion of this note was documented by scribe services under my direction. I have reviewed the details of the note, within reason, and agree with the documentation with the following case summary and management plan written by me. Patient treated in the ED. Nursing notes are reviewed and incorporated into the medical decision-making. Vital signs reviewed. Peripheral IV access obtained by the nurse, laboratory studies are drawn and sent, reviewed and interpreted by myself. Vital Signs Temp Pulse Resp BP Pulse Ox 98.4 F 87 18 125/67 99 09/30/17 09:27 09/30/17 09:27 09/30/17 09:27 09/30/17 09:27 09/30/17 09:27 21-year-old male with past medical history of appendectomy presents with diffuse abdominal pain. The patient was here yesterday and evaluated for diffuse about pain with nausea vomiting and diarrhea. Had a limited noncontrasted CAT scan of the abdomen pelvis and an ultrasound which was unremarkable and the patient was sent home with by mouth Zofran. However, patient to have persistent vomiting and inability to tolerate by mouth and diffuse abdominal pain and return to the ED. Patient stated he had similar symptoms last year where they ultimately had an appendectomy. However, he had repeated episodes. Denies family history of ulcerative colitis or Crohn's disease or other GI etiology. Never had a colonoscopy or endoscopy. Does not have a doctor. The patient really prefers not to have another repeat CAT scan despite that the patient did not have an IV contrast study yesterday. We'll obtain blood work and control symptoms. If the symptoms are persistent patient is unable to tolerate by mouth, we'll admit the patient to hospital further evaluate patient 09/30/17 12:43 CBC, BMP 09/30/17 10:00 09/30/17 10:00 CMP Sodium 139 mmol/L (136-145) 09/30/17 10:00 Potassium 3.3 mmol/L (3.5-5.1) L 09/30/17 10:00 Chloride 98 mmol/L (98-107) 09/30/17 10:00 Carbon Dioxide 32 mmol/L (21-32) 09/30/17 10:00 Anion Gap 9 (8-16) 09/30/17 10:00 BUN 5 mg/dL (7-18) L 09/30/17 10:00 Creatinine 0.9 mg/dL (0.7-1.3) 09/30/17 10:00 Creat Clearance w eGFR > 60 (>60) 09/30/17 10:00 Random Glucose 92 mg/dL (74-106) 09/30/17 10:00 Calcium 9.4 mg/dL (8.5-10.1) 09/30/17 10:00 Phosphorus 2.9 mg/dL (2.5-4.9) 09/30/17 10:00 Magnesium 2.1 mg/dL (1.8-2.4) 09/30/17 10:00 Total Bilirubin 0.6 mg/dL (0.2-1.0) D 09/30/17 10:00 AST 10 U/L (15-37) L 09/30/17 10:00 ALT 18 U/L (12-78) 09/30/17 10:00 Alkaline Phosphatase 58 U/L (45-117) 09/30/17 10:00 Total Protein 7.3 g/dl (6.4-8.2) 09/30/17 10:00 Albumin 4.2 g/dl (3.4-5.0) 09/30/17 10:00 Pt with persistent abdominal pain despite treatment. Perhaps, we should consider IBD vs IBS? Either way, given unable to tolerate PO Pt ambulatory and without rigid abdomen. Case discussed with DR. Benjamin. Accepted for med/surg obs. Requests Dr. Peraza for GI consultation. 09/30/17 12:46 <Alexy Sher - Last Filed: 09/30/17 12:46> *DC/Admit/Observation/Transfer - Attestations Scribe Attestion: 09/30/17 10:44 Documentation prepared by SHILPA Goncalves, acting as medical sales representative for Alexy Sher MD. <Zohra Wilson - Last Filed: 09/30/17 11:39> - Discharge Dispostion Admit: Yes <Alexy Sher - Last Filed: 09/30/17 12:46> Diagnosis at time of Disposition: Abdominal pain Qualifiers: Abdominal location: generalized Qualified Code(s): R10.84 - Generalized abdominal pain - Discharge Dispostion Condition at time of disposition: Stable
[2017-09-30 10:23] LABS: INR 1.27 (0.82-1.09); PROTHROMBIN TIME (PATIENT) 14.3 SEC (9.98-11.88)
[2017-09-30 10:26] LABS: ACTIVATED PTT 34.7 SECONDS (26.9-34.4)
[2017-09-30 10:48] LABS: ALBUMIN 4.2 g/dl (3.4-5.0); ALK PHOS 58 U/L (45-117); ANION GAP 9 (8-16); BILIRUBIN,TOTAL 0.6 mg/dL (0.2-1.0); CALCIUM 9.4 mg/dL (8.5-10.1); CO2 32 mmol/L (21-32); CREATININE 0.9 mg/dL (0.7-1.3); GLUCOSE,RANDOM 92 mg/dL (74-106); MAGNESIUM 2.1 mg/dL (1.8-2.4); PHOSPHOROUS 2.9 mg/dL (2.5-4.9); SGOT/AST 10 U/L (15-37); SGPT/ALT 18 U/L (12-78); TOT PROT 7.3 g/dl (6.4-8.2)
[2017-09-30] MEDS ORDERED: FAMOTIDINE 20 MG/50 ML IVPB 20 MG/50 ML MG IVPB ONE ×2 (11:39→11:43)
[2017-09-30] MEDS ORDERED: MAG HYDROX/AL HYDROX/SIMETH 30 ML UNIT-DOSE CUP PO ONE (11:39)
[2017-09-30] MEDS ORDERED: ACETAMINOPHEN 1000 MG/100 ML VIAL (NON FORMULARY) IVPB ONE (11:39)
[2017-09-30] MEDS ORDERED: ACETAMINOPHEN INJECTION 100 ML IVPB ONE (11:43)
[2017-09-30] MEDS ORDERED: MAG HYDROX/AL HYDROX/SIMETH 30 ML UNIT-DOSE CUP ONE (11:43)
--- NOTE | 2017-09-30 16:20 | HP ---
Admitting History and Physical - Primary Care Physician PCP: Denny Benjamin - Admission History of Present Illness: 21 year old male, with significant past medical history of appendectomy (2016), who was recently admitted on 09/27/17 for recurrent nausea, vomiting, and diarrhea but left AMA when symptoms resolved. He was also seen in the ED on with a markedly limited abdominal pelvic CT and was discharged with Zofran. The patient returns today with persistent episodes of nonbloody, nonbilious vomiting, diffuse abdominal pain, and loose watery stool. He states that he is unable to keep down the PO Zofran. The patient notes that he experienced similar symptoms last year around this time and was thought to have appendicitis; therefore, had an appendectomy. - Smoking History Smoking history: Never smoked Have you smoked in the past 12 months: No - Alcohol/Substance Use Hx Alcohol Use: No Home Medications - Allergies Allergies/Adverse Reactions: Allergies Allergy/AdvReac Type Severity Reaction Status Date / Time [facility] [[facility] [place] Allergy Severe "throat Verified 09/30/17 09:27 swelling" - Home Medications Home Medications: Ambulatory Orders Ondansetron [Zofran Odt -] 4 mg SL TID PRN #21 od.tablet 09/29/17 Physical Examination Vital Signs: Vital Signs Temperature 98.4 F 09/30/17 09:27 Pulse Rate 79 09/30/17 13:35 Respiratory Rate 18 09/30/17 13:35 Blood Pressure 118/74 09/30/17 13:35 O2 Sat by Pulse Oximetry (%) 99 09/30/17 13:35 Constitutional: Yes: No Distress HENT: Yes: Atraumatic Neck: Yes: Supple Cardiovascular: Yes: Regular Rate and Rhythm Respiratory: Yes: CTA Bilaterally Gastrointestinal: Yes: Normal Bowel Sounds Extremities: Yes: WNL Neurological: Yes: Alert, Oriented Labs: CBC, BMP 09/30/17 10:00 09/30/17 10:00 Problem List - Problems (1) Abdominal pain Assessment/Plan: prn pain meds prn zofran gi consult Code(s): R10.9 - UNSPECIFIED ABDOMINAL PAIN Qualifiers: Abdominal location: generalized Qualified Code(s): R10.84 - Generalized abdominal pain (2) Cyclical vomiting syndrome Code(s): G43.A0 - CYCLICAL VOMITING, NOT INTRACTABLE (3) Nausea & vomiting Code(s): R11.2 - NAUSEA WITH VOMITING, UNSPECIFIED Qualifiers: Vomiting type: unspecified Vomiting Intractability: non-intractable Qualified Code(s): R11.2 - Nausea with vomiting, unspecified Assessment/Plan Laboratory Tests 09/30/17 09/30/17 09/30/17 06:15 10:00 10:00 WBC 10.7 H RBC 4.81 Hgb 14.6 Hct 43.4 MCV 90.1 MCH 30.4 MCHC 33.8 RDW 13.6 Plt Count 205 MPV 9.7 Neutrophils % 75.5 Lymphocytes % 16.2 Monocytes % 7.4 Eosinophils % 0.6 Basophils % 0.3 PT with INR 14.30 H INR 1.27 H PTT (Actin FS) 34.7 H Sodium Potassium Chloride Carbon Dioxide Anion Gap BUN Creatinine Creat Clearance w eGFR Random Glucose Calcium Phosphorus Magnesium Total Bilirubin AST ALT Alkaline Phosphatase Total Protein Albumin Lipase 376 09/30/17 10:00 WBC RBC Hgb Hct MCV MCH MCHC RDW Plt Count MPV Neutrophils % Lymphocytes % Monocytes % Eosinophils % Basophils % PT with INR INR PTT (Actin FS) Sodium 139 Potassium 3.3 L Chloride 98 Carbon Dioxide 32 Anion Gap 9 BUN 5 L Creatinine 0.9 Creat Clearance w eGFR > 60 Random Glucose 92 Calcium 9.4 Phosphorus 2.9 Magnesium 2.1 Total Bilirubin 0.6 D AST 10 L ALT 18 Alkaline Phosphatase 58 Total Protein 7.3 Albumin 4.2 Lipase Active Medications Generic Name Dose Route Start Last Admin Trade Name Freq PRN Reason Stop Dose Admin Sodium Chloride 1,000 mls @ 100 mls/hr 09/30/17 17:15 09/30/17 17:15 Normal Saline - IV 100 mls/hr ASDIR CHARISMA Administration Morphine Sulfate 2 mg 09/30/17 16:57 09/30/17 17:15 Morphine Sulfate IVPUSH 2 mg Q4H PRN Administration PAIN Ondansetron HCl 4 mg 09/30/17 16:43 Zofran Odt - SL Q6H PRN NAUSEA AND/OR VOMITING Pantoprazole Sodium 40 mg 09/30/17 16:45 09/30/17 17:15 Protonix Iv IVPUSH 40 mg DAILY CHARISMA Administration
--- NOTE | 2017-09-30 16:38 | CON.GI ---
Consult Consult Specialty:: GI Referred by:: ED - History of Present Illness History of Present Illness: A 21 yom with nausea, vomiting, epigastric pain and diarrhea since Saturday. Denies eating out, ill, contacts, changed in diet, recent travels, camping, antibiotic use, new medications. Deneis fever, chills, joint, skin, eye symptoms. Deneis chronic ETOH, NSAIDs. Had similar episode 1 year ago and was diagnosed with acute appendicitis. Blood work on admission is significant for mild leukocytosis. - Alcohol/Substance Use Hx Alcohol Use: No - Smoking History Smoking history: Never smoked Have you smoked in the past 12 months: No Home Medications - Allergies Allergies/Adverse Reactions: Allergies Allergy/AdvReac Type Severity Reaction Status Date / Time [facility] Allergy Severe "throat Verified 09/30/17 09:27 swelling" - Home Medications Home Medications: Ambulatory Orders Ondansetron [Zofran Odt -] 4 mg SL TID PRN #21 od.tablet 09/29/17 Family Disease History - Family Disease History Family History: Unremarkable (non-contributory) Review of Systems Findings/Remarks: please refer to H&P Physical Exam-GI Vital Signs: Vital Signs Temperature 98.4 F 09/30/17 09:27 Pulse Rate 79 09/30/17 13:35 Respiratory Rate 18 09/30/17 13:35 Blood Pressure 118/74 09/30/17 13:35 O2 Sat by Pulse Oximetry (%) 99 09/30/17 13:35 Constitutional: Yes: Well Nourished, No Distress, Calm Eyes: Yes: Conjunctiva Clear HENT: Yes: Atraumatic Neck: Yes: Supple Cardiovascular: Yes: Regular Rate and Rhythm Respiratory: Yes: Regular ...Auscultate: Yes: Normoactive Bowel Sounds ...Palpate: Yes: Soft, Tenderness, Tenderness, Epigastium. No: Mass ...Percussion: Yes: Other (negative mcclure's) Neurological: Yes: Alert, Oriented Labs: CBC, BMP 09/30/17 10:00 09/30/17 10:00 INR, PTT INR 1.27 (0.82-1.09) H 09/30/17 10:00 CBCD WBC 10.7 K/mm3 (4.0-10.0) H 09/30/17 10:00 RBC 4.81 M/mm3 (4.00-5.60) 09/30/17 10:00 Hgb 14.6 GM/dL (11.7-16.9) 09/30/17 10:00 Hct 43.4 % (35.4-49) 09/30/17 10:00 MCV 90.1 fl (80-96) 09/30/17 10:00 MCHC 33.8 g/dl (32.0-35.9) 09/30/17 10:00 RDW 13.6 % (11.9-15.9) 09/30/17 10:00 Plt Count 205 K/MM3 (134-434) 09/30/17 10:00 MPV 9.7 fl (7.5-11.1) 09/30/17 10:00 CMP Sodium 139 mmol/L (136-145) 09/30/17 10:00 Potassium 3.3 mmol/L (3.5-5.1) L 09/30/17 10:00 Chloride 98 mmol/L (98-107) 09/30/17 10:00 Carbon Dioxide 32 mmol/L (21-32) 09/30/17 10:00 Anion Gap 9 (8-16) 09/30/17 10:00 BUN 5 mg/dL (7-18) L 09/30/17 10:00 Creatinine 0.9 mg/dL (0.7-1.3) 09/30/17 10:00 Creat Clearance w eGFR > 60 (>60) 09/30/17 10:00 Calcium 9.4 mg/dL (8.5-10.1) 09/30/17 10:00 Total Bilirubin 0.6 mg/dL (0.2-1.0) D 09/30/17 10:00 AST 10 U/L (15-37) L 09/30/17 10:00 ALT 18 U/L (12-78) 09/30/17 10:00 Alkaline Phosphatase 58 U/L (45-117) 09/30/17 10:00 Total Protein 7.3 g/dl (6.4-8.2) 09/30/17 10:00 Albumin 4.2 g/dl (3.4-5.0) 09/30/17 10:00 Laboratory Results - last 24 hr 09/30/17 09/30/17 09/30/17 10:00 10:00 10:00 WBC 10.7 H RBC 4.81 Hgb 14.6 Hct 43.4 MCV 90.1 MCH 30.4 MCHC 33.8 RDW 13.6 Plt Count 205 MPV 9.7 Neutrophils % 75.5 Lymphocytes % 16.2 Monocytes % 7.4 Eosinophils % 0.6 Basophils % 0.3 PT with INR 14.30 H INR 1.27 H PTT (Actin FS) 34.7 H Sodium 139 Potassium 3.3 L Chloride 98 Carbon Dioxide 32 Anion Gap 9 BUN 5 L Creatinine 0.9 Creat Clearance w eGFR > 60 Random Glucose 92 Calcium 9.4 Phosphorus 2.9 Magnesium 2.1 Total Bilirubin 0.6 D AST 10 L ALT 18 Alkaline Phosphatase 58 Total Protein 7.3 Albumin 4.2 Problem List - Problems (1) Abdominal pain Code(s): R10.9 - UNSPECIFIED ABDOMINAL PAIN Qualifiers: Abdominal location: generalized Qualified Code(s): R10.84 - Generalized abdominal pain (2) Nausea & vomiting Code(s): R11.2 - NAUSEA WITH VOMITING, UNSPECIFIED Qualifiers: Vomiting type: unspecified Vomiting Intractability: non-intractable Qualified Code(s): R11.2 - Nausea with vomiting, unspecified Assessment/Plan Persisitent nausea, vomiting, diarrhea and epigastric pain in otherwise healthy 21 yom. r/o upper GI inflammatory states (pud, gastritis, duodenies, esophagitis, pancreatitis, gallstone, etc.), Doubt, ischemia, obstruction, IBD. Infectious etiology is possible, however the duration and severity of the symptoms is not entirely consistent NPO except medications IVF Stool for infectious etiologies Lipase tonight RUQ US PPI IVP Antiemetics and pain management PRN EGD in AM Discussed with the patient
[2017-09-30] MEDS ORDERED: ONDANSETRON *ODT* 4 MG TABLET SL PRN (16:43)
[2017-09-30] MEDS ORDERED: morphine SULFATE 4 MG/ML VIAL IVPUSH PRN (16:57)
[2017-09-30] MEDS: SODIUM CHLORIDE 1,000 ML IV SCH (17:15)
[2017-09-30] MEDS: PANTOPRAZOLE SODIUM 40 MG VIAL IVPUSH SCH (17:15)
[2017-09-30] MEDS ORDERED: PT OWN MED DRAWER 7, Y5N ONE (18:51)
[2017-10-01 01:31] LABS: URINE APPEARANCE CLEAR; URINE BILIRUBIN NEGATIVE (NEGATIVE); URINE BLOOD NEGATIVE (NEGATIVE); URINE COLOR COLORLESS; URINE GLUCOSE (UA) NEGATIVE (NEGATIVE); URINE KETONE TRACE (NEGATIVE); URINE NITRITE NEGATIVE (NEGATIVE); URINE PROTEIN NEGATIVE (NEGATIVE); URINE UROBILINOGEN NEGATIVE mg/dL (0.2-1.0)
[2017-10-01] MEDS: SODIUM CHLORIDE 1,000 ML IV SCH (04:51)
[2017-10-01 08:02] LABS: ALBUMIN 3.6 g/dl (3.4-5.0); ALK PHOS 50 U/L (45-117); ANION GAP 5 (8-16); BILIRUBIN,DIRECT 0.2 mg/dL (0.0-0.2); BILIRUBIN,TOTAL 0.6 mg/dL (0.2-1.0); CALCIUM 8.4 mg/dL (8.5-10.1); CO2 29 mmol/L (21-32); CREATININE 0.8 mg/dL (0.7-1.3); GLUCOSE,RANDOM 80 mg/dL (74-106); SGOT/AST 7 U/L (15-37); SGPT/ALT 15 U/L (12-78); TOT PROT 6.2 g/dl (6.4-8.2)
[2017-10-01 08:11] LABS: BASOPHIL 0.5 % (0-2.0); EOSINOPHIL 1.3 % (0-4.5); MCH 30.7 pg (25.7-33.7); MEAN PLT VOLUME 10.3 fl (7.5-11.1); NEUTROPHILS 56.9 % (42.8-82.8); PLATELET COUNT 187 K/MM3 (134-434); RDW 13.5 % (11.9-15.9); WHITE BLOOD COUNT 8.8 K/mm3 (4.0-10.0)
[2017-10-01] MEDS: PANTOPRAZOLE SODIUM 40 MG VIAL IVPUSH SCH (09:57)
[2017-10-01 10:41] LABS: URINE LEUK ESTERASE Negative (NEGATIVE)
--- NOTE | 2017-10-01 12:01 | PN ---
Progress Note, Physician History of Present Illness: Asymptomatic. No events overnight. MIldly elevated lipase and CBD 0.6 mm - Current Medication List Current Medications: Active Medications Sodium Chloride (Normal Saline -) 1,000 mls @ 100 mls/hr IV ASDIR [facility] Last Admin: 10/01/17 04:51 Dose: 100 mls/hr Morphine Sulfate (Morphine Sulfate) 2 mg IVPUSH Q4H PRN PRN Reason: PAIN Last Admin: 09/30/17 17:15 Dose: 2 mg Ondansetron HCl (Zofran Odt -) 4 mg SL Q6H PRN PRN Reason: NAUSEA AND/OR VOMITING Pantoprazole Sodium (Protonix Iv) 40 mg IVPUSH DAILY [facility] Last Admin: 10/01/17 09:57 Dose: 40 mg - Objective Vital Signs: Vital Signs Temperature 98.2 F 10/01/17 08:00 Pulse Rate 58 L 10/01/17 08:00 Respiratory Rate 18 10/01/17 08:00 Blood Pressure 102/56 10/01/17 08:00 O2 Sat by Pulse Oximetry (%) 98 09/30/17 20:41 Constitutional: Yes: Well Nourished, No Distress, Calm Eyes: Yes: Conjunctiva Clear HENT: Yes: Atraumatic Neck: Yes: Supple Cardiovascular: Yes: Regular Rate and Rhythm Respiratory: Yes: Regular Gastrointestinal: Yes: Normal Bowel Sounds, Soft Neurological: Yes: Alert, Oriented Labs: CBC, BMP 10/01/17 06:20 10/01/17 06:20 INR, PTT INR 1.27 (0.82-1.09) H 09/30/17 10:00 Laboratory Results - last 24 hr 09/30/17 09/30/17 10/01/17 06:15 22:30 06:20 WBC 8.8 RBC 4.47 Hgb 13.7 Hct 40.2 MCV 90.0 MCH 30.7 MCHC 34.0 RDW 13.5 Plt Count 187 MPV 10.3 Neutrophils % 56.9 D Lymphocytes % 33.8 D Monocytes % 7.5 Eosinophils % 1.3 D Basophils % 0.5 Sodium Potassium Chloride Carbon Dioxide Anion Gap BUN Creatinine Creat Clearance w eGFR Random Glucose Calcium Total Bilirubin Direct Bilirubin AST ALT Alkaline Phosphatase Total Protein Albumin Lipase 376 Urine Color Colorless Urine Appearance Clear Urine pH 7.0 Ur Specific [place] 1.002 Urine Protein Negative Urine Glucose (UA) Negative Urine Ketones Trace H Urine Blood Negative Urine Nitrite Negative Urine Bilirubin Negative Urine Urobilinogen Negative Ur Leukocyte Esterase Negative 10/01/17 06:20 WBC RBC Hgb Hct MCV MCH MCHC RDW Plt Count MPV Neutrophils % Lymphocytes % Monocytes % Eosinophils % Basophils % Sodium 139 Potassium 3.4 L Chloride 105 Carbon Dioxide 29 Anion Gap 5 L BUN 7 D Creatinine 0.8 Creat Clearance w eGFR > 60 Random Glucose 80 Calcium 8.4 L Total Bilirubin 0.6 Direct Bilirubin 0.2 AST 7 L D ALT 15 Alkaline Phosphatase 50 Total Protein 6.2 L Albumin 3.6 Lipase 541 H Urine Color Urine Appearance Urine pH Ur Specific [place] Urine Protein Urine Glucose (UA) Urine Ketones Urine Blood Urine Nitrite Urine Bilirubin Urine Urobilinogen Ur Leukocyte Esterase - ....Imaging Ultrasound: Report Reviewed Problem List - Problems (1) Abdominal pain Code(s): R10.9 - UNSPECIFIED ABDOMINAL PAIN Qualifiers: Abdominal location: generalized Qualified Code(s): R10.84 - Generalized abdominal pain (2) Nausea & vomiting Code(s): R11.2 - NAUSEA WITH VOMITING, UNSPECIFIED Qualifiers: Vomiting type: unspecified Vomiting Intractability: non-intractable Qualified Code(s): R11.2 - Nausea with vomiting, unspecified (3) Elevated lipase Code(s): R74.8 - ABNORMAL LEVELS OF OTHER SERUM ENZYMES (4) Dilated cbd, acquired Code(s): K83.8 - OTHER SPECIFIED DISEASES OF BILIARY TRACT Assessment/Plan EGD planned for today Lab and US findings discussed with the patient. ?Mild biliary pancreatitis? lipid panel MRCP as OP if EGD negative - discussed with the patient and he agrees Adequate hydration
[2017-10-01 12:58] LABS: CHOLESTEROL 111 mg/dL (50-200)
[2017-10-01] MEDS ORDERED: PROPOFOL 20 ML ONE (13:59)
[2017-10-01 14:27] VITALS: TEMP 97.2
--- NOTE | 2017-10-01 14:28 | PROC ---
Endoscopy Procedure Endoscopy procedure completed. Please see scanned procedure report. mild gastritis and duodenitis, biopsies taken
[2017-10-01 15:00] VITALS: BP 107/63; PULSE 58
--- NOTE | 2017-10-01 19:28 | DS ---
Physical Examination Vital Signs: Vital Signs Temperature 97.2 F L 10/01/17 14:19 Pulse Rate 58 L 10/01/17 14:59 Respiratory Rate 12 10/01/17 14:59 Blood Pressure 107/63 10/01/17 14:59 O2 Sat by Pulse Oximetry (%) 100 10/01/17 14:59 Labs: CBC, BMP 10/01/17 06:20 10/01/17 06:20 Discharge Summary Reason For Visit: ABD PAIN Current Active Problems Abdominal pain (Acute) Dilated cbd, acquired (Acute) Elevated lipase (Acute) Condition: Stable - Instructions Disposition: ELOPED - Home Medications Comprehensive Discharge Medication List: Ambulatory Orders Ondansetron [Zofran Odt -] 4 mg SL TID PRN #21 od.tablet 09/29/17 Pantoprazole Sodium [Protonix -] 40 mg PO DAILY #30 tablet.ec 10/01/17 pt ELOPED
[2017-10-02] MEDS ORDERED: PANTOPRAZOLE 40 MG TABLET (FP) PO SCH (10:00)
--- NOTE | 2017-10-03 12:12 | PATH ---
Surgical Pathology Report Patient Name: WES ZAVALETA [facility]. Rec. #: [id number] /Age/Gender: 1995 (Age: 21) / M Account: [id number] Location: [address] [place] [address]/[facility] Taken: 10/01/2017 Received: 10/02/2017 Reported: 10/03/2017 Physicians: Ike Peraza M.D. Specimen(s) Received A: BX DUODENUM 2ND PORTION B: BX OF FUNDUS C: BX ANTRUM BODY D: BX ESOPHAGUS Clinical History Preoperative diagnosis: Abdominal pain Postoperative diagnosis: Duodenitis, gastritis Final Diagnosis A. DUODENUM, SECOND PORTION, BIOPSY: DUODENAL MUCOSA WITH NO PATHOLOGIC CHANGES. NO HISTOLOGIC EVIDENCE OF GLUTEN SENSITIVE ENTEROPATHY (CELIAC SPRUE) IDENTIFIED. B. STOMACH, FUNDUS, BIOPSY: GASTRIC FUNDIC MUCOSA AND EXTRAVASATION OF RED BLOOD CELLS WITHIN LAMINA PROPRIA. NO INFLAMMATION IDENTIFIED. IMMUNOSTAIN FOR H. PYLORI IS NEGATIVE. C. STOMACH, ANTRUM AND BODY, BIOPSY: GASTRIC ANTRAL AND FUNDIC MUCOSA WITH NO PATHOLOGIC CHANGES. IMMUNOSTAIN FOR H. PYLORI IS NEGATIVE. D. ESOPHAGUS, BIOPSY: SQUAMOUS EPITHELIUM WITH NO PATHOLOGIC CHANGES. NO INTESTINAL METAPLASIA IDENTIFIED (NO LOUIS'S IDENTIFIED). NO EOSINOPHILIC ESOPHAGITIS IDENTIFIED. Electronically Signed Mike Mendiola M.D. Gross Description A. Received in formalin, labeled "biopsy duodenum second portion" are 2 brown, irregular portions of soft tissue averaging 0.3 cm. in greatest dimension. The specimens are submitted in toto in one cassette. B. Received in formalin, labeled "biopsy fundus" are 2 brown, irregular portions of soft tissue measuring 0.2 and 0.3 cm. in greatest dimension. The specimens are submitted in toto in one cassette. C. Received in formalin, labeled "biopsy antrum/body" are 2 brown, irregular portions of soft tissue measuring 0.4 and 0.7 cm. in greatest dimension. The specimens are submitted in toto in one cassette. D. Received in formalin, labeled "biopsy esophagus" is a brown, irregular portion of soft tissue measuring 0.3 cm. in greatest dimension. The specimen is submitted in toto in one cassette. 10/02/201710/02/2017
--- NOTE | 2017-10-07 13:32 | EKG ---
Test Reason : Blood Pressure : / mmHG Vent. Rate : 046 BPM Atrial Rate : 046 BPM P-R Int : 142 ms QRS Dur : 096 ms QT Int : 438 ms P-R-T Axes : 063 083 076 degrees QTc Int : [address] ELEVATION, CONSIDER EARLY REPOLARIZATION, PERICARDITIS, OR INJURY INCOMPLETE RIGHT BUNDLE BRANCH BLOCK NONSPECIFIC ST ABNORMALITY ABNORMAL ECG WHEN COMPARED WITH ECG OF 29-SEP-2017 16:10, NO SIGNIFICANT CHANGE WAS FOUND Confirmed by BRAN TANG MD ([id number]) on 10/07/2017 1:32:04 PM Referred By: Confirmed By:BRAN TANG MD
== END 2017-10-01 20:07 | disposition left against medical advice (07) | DRG 241 ==
LOC: JER 09:22 → JERBED 12:46 → J6S 15:15 → OBSVTOIN 16:51
PROVIDERS: ADMIT Internal Medicine; ATTEND Internal Medicine
PROC: 0DD68ZX Extraction of Stomach, Via Natural or Artificial Opening Endoscopic, Diagnostic (ICD-10-PCS; 2017-10-01)
PROC: 0DD58ZX Extraction of Esophagus, Via Natural or Artificial Opening Endoscopic, Diagnostic (ICD-10-PCS; 2017-10-01)
PROC: 0DD98ZX Extraction of Duodenum, Via Natural or Artificial Opening Endoscopic, Diagnostic (ICD-10-PCS; principal; 2017-10-01 12:00)
DX: K29.60 Other gastritis without bleeding (principal); K83.8 Other specified diseases of biliary tract; R10.84 Generalized abdominal pain; R11.2 Nausea with vomiting, unspecified; G43.A0 Cyclical vomiting, in migraine, not intractable; R74.8 Abnormal levels of other serum enzymes; K29.80 Duodenitis without bleeding; Z68.1 Body mass index [BMI] 19.9 or less, adult
CPT/HCPCS: 36415; 76705-TC; 80053; 80061; 81003; 82248; 83690; 83721; 83735; 84100; 85025; 85610; 85730; 88305-TC; 88342-TC; 93005; 93010; 99285-25; G0378

== ENCOUNTER 2018-02-09 23:11 | Emergency (ER) | payer OTHER ==
[2018-02-09 23:19] VITALS: BMI 16.7
[2018-02-09] MEDS ORDERED: METOCLOPRAMIDE HCL INJECTION 10 MG/2 ML VIAL IVPUSH ONE (23:24)
[2018-02-09] MEDS ORDERED: SODIUM CHLORIDE 0.9% 500 ML INFUS.BAG IV ONE (23:24)
[2018-02-10] MEDS ORDERED: METOCLOPRAMIDE HCL INJECTION 10 MG/2 ML VIAL ONE (00:06)
[2018-02-10 00:44] LABS: BASO % 0.3 % (0-2.0); EOS % 0.5 % (0-4.5); HEMATOCRIT 42.5 % (35.4-49); HEMOGLOBIN 14.4 GM/dL (11.7-16.9); MCH 30.5 pg (25.7-33.7); MCHC 33.8 g/dl (32.0-35.9); MEAN CELL VOLUME 90.1 fl (80-96); MONO % 4.3 % (3.8-10.2); NEUT % 86.9 % (42.8-82.8); PLATELET COUNT 258 K/MM3 (134-434); RBC 4.72 M/mm3 (4.00-5.60); RDW 13.6 % (11.9-15.9); WHITE BLOOD COUNT 15.9 K/mm3 (4.0-10.0)
[2018-02-10 01:16] LABS: ALBUMIN 4.6 g/dl (3.4-5.0); ANION GAP 11 (8-16); BILIRUBIN,TOTAL 0.5 mg/dL (0.2-1.0); BLOOD UREA NITROGEN 9 mg/dL (7-18); CALCIUM 9.7 mg/dL (8.5-10.1); CHLORIDE 102 mmol/L (98-107); CO2 27 mmol/L (21-32); CREATININE 0.9 mg/dL (0.7-1.3); GLUCOSE,RANDOM 119 mg/dL (74-106); SGOT/AST 27 U/L (15-37); SGPT/ALT 27 U/L (12-78); SODIUM 140 mmol/L (136-145); TOT PROT 8.3 g/dl (6.4-8.2)
[2018-02-10 01:17] LABS: ALK PHOS 76 U/L (45-117)
[2018-02-10] MEDS ORDERED: ONDANSETRON 4 MG/2 ML VIAL IVPUSH ONE (02:06)
[2018-02-10] MEDS ORDERED: ONDANSETRON 4 MG/2 ML VIAL ONE (02:42)
--- NOTE | 2018-02-10 03:23 | PDOC ---
History of Present Illness - General Chief Complaint: Nausea/Vomiting Stated Complaint: VOMITING,STOMACH PAIN Time Seen by Provider: 02/09/18 23:21 - History of Present Illness Initial Comments: 02/10/18 03:18 CHIEF COMPLAINT: vomiting HISTORY OF PRESENT ILLNESS: 22 yo M presents to ED with persistent vomiting since this morning. Patient has had multiple visits to this ER with similar symptoms and had EGD with biopsy in 09/2017 with diagnosis of duodenitis and gastritis. Patient reports that he does smoke marijuana and last use was one week ago. Patient states he has been dry heaving all day. No recent travel or sick contacts. PAST MEDICAL HISTORY: Denies past medical history FAMILY HISTORY: Denies SOCIAL HISTORY: Denies tobacco, alcohol, illicit drug use. SURGICAL HISTORY: Denies ALLERGIES: No known drug allergies REVIEW OF SYSTEMS General/Constitutional: Denies fever or chills. Denies weakness, weight change. HEENT: Denies change in vision. Denies ear pain or discharge. Denies sore throat. Cardiovascular: Denies chest pain or shortness of breath. Respiratory: Denies cough, wheezing, or hemoptysis. Gastrointestinal: Denies nausea, vomiting, diarrhea or constipation. Denies rectal bleeding. Genitourinary: Denies dysuria, frequency, or change in urination. Musculoskeletal: Denies joint or muscle swelling or pain. Denies neck or back pain. Skin and breasts: Denies rash or easy bruising. Neurologic: Denies headache, vertigo, loss of consciousness, or loss of sensation. PHYSICAL EXAM General Appearance: Well-appearing, appropriately dressed. No apparent distress , no intoxication. HEENT: EOMI, PERRLA, normal ENT inspection, normal voice, TMs normal, pharynx normal. No conjunctival pallor. No photophobia, scleral icterus. Neck: Supple. Trachea midline. No tenderness, rigidity, carotid bruit, stridor , lymphadenopathy, or thyromegaly. Respiratory/Chest: Lungs CTAB. No shortness of breath, chest tenderness, respiratory distress, accessory muscle use. No crackles, rales, rhonchi, stridor , wheezing, dullness Cardiovascular: RRR. S1, S2. No JVD, murmur, bradycardia, tachycardia. Vascular Pulses: Dorsalis-Pedis (R): 2+, Dorsalis-Pedis (L): 2+ Gastrointestinal/Abdominal: Normal bowel sounds. Abdomen soft, non-distended. No tenderness or rebound tenderness. No organomegaly, pulsatile mass, guarding , hernia, hepatomegaly, splenomegaly. Lymphatic: No adenopathy, tenderness. Musculoskeletal/Extremities: Normal inspection. FROM of all extremities, normal capillary refill. Pelvis Stable. No CVA tenderness. No tenderness to extremities, pedal edema, swelling, erythema or deformity. Integumentary: Appropriate color, dry, warm. No cyanosis, erythema, jaundice or rash Neurologic: physical fitness teacher II-XII intact. Fully oriented, alert. Appropriate mood/affect. Motor strength 5/5. No appreciable EOM palsy, facial droop or sensory deficit. Past History - Past Medical History Allergies/Adverse Reactions: Allergies Allergy/AdvReac Type Severity Reaction Status Date / Time cefaclor [From [facility]] Allergy Severe "throat Verified 02/09/18 23:16 swelling" Home Medications: Ambulatory Orders Ondansetron [Zofran Odt -] 4 mg SL TID PRN #21 od.tablet 09/29/17 Pantoprazole Sodium [Protonix -] 40 mg PO DAILY #30 tablet.ec 10/01/17 Ondansetron [Zofran Odt -] 4 mg SL TID #21 od.tablet 02/10/18 Asthma: Yes COPD: No Thyroid Disease: No - Surgical History Abdominal Surgery: Yes Appendectomy: Yes Neurologic Surgery: Yes (Tumor Removal 2007) - Suicide/Smoking/Psychosocial Hx Smoking History: Never smoked Have you smoked in the past 12 months: No Hx Alcohol Use: No Drug/Substance Use Hx: No Substance Use Type: None *Physical Exam - Vital Signs Last Vital Signs Temp Pulse Resp BP Pulse Ox 97.8 F 59 L 18 116/74 100 02/09/18 23:17 02/09/18 23:17 02/09/18 23:17 02/09/18 23:17 02/09/18 23:17 ED Treatment Course - LABORATORY CBC & Chemistry Diagram: 02/10/18 00:30 02/10/18 00:30 - ADDITIONAL ORDERS Additional order review: Laboratory Results 02/10/18 02/10/18 00:30 00:30 Sodium 140 Potassium 4.0 Chloride 102 Carbon Dioxide 27 Anion Gap 11 BUN 9 D Creatinine 0.9 Creat Clearance w eGFR > 60 Random Glucose 119 H D Calcium 9.7 Total Bilirubin 0.5 AST 27 D ALT 27 D Alkaline Phosphatase 76 D Total Protein 8.3 H D Albumin 4.6 D Lipase 127 02/10/18 00:30 RBC 4.72 MCV 90.1 MCHC 33.8 RDW 13.6 MPV 10.0 Neutrophils % 86.9 H D Lymphocytes % 8.0 D Monocytes % 4.3 Eosinophils % 0.5 Basophils % 0.3 - Medications Given in the ED: ED Medications Discontinued Medications Generic Name Dose Route Start Last Admin Trade Name Debbie PRN Reason Stop Dose Admin Metoclopramide HCl 10 mg 02/09/18 23:24 02/10/18 00:37 Reglan Injection - IVPUSH 02/09/18 23:25 10 mg ONCE ONE Administration Ondansetron HCl 8 mg 02/10/18 02:06 02/10/18 02:47 Zofran Injection IVPUSH 02/10/18 02:07 8 mg ONCE ONE Administration Sodium Chloride 1,000 ml 02/09/18 23:24 02/10/18 00:37 Normal Saline - IV 02/09/18 23:25 1,000 ml ONCE ONE Administration Medical Decision Making - Medical Decision Making 02/10/18 03:23 22 yo M presents to ED with persistent vomiting since this morning. *DC/Admit/Observation/Transfer Diagnosis at time of Disposition: Cyclical vomiting syndrome - Discharge Dispostion Disposition: HOME Condition at time of disposition: Stable Admit: No - Prescriptions Prescriptions: Ondansetron [Zofran Odt -] 4 mg SL TID #21 od.tablet - Referrals Referrals: Ike Peraza MD [Staff Physician] - - Patient Instructions Printed Discharge Instructions: DI for Vomiting -- Adult Additional Instructions: Take medications as directed. As discussed, you must follow up with Dr. Peraza THIS WEEK for further evaluation and monitoring. If you develop any fever, chills, persistent vomiting or diarrhea, or any new or worsening symptoms, return to the ER immediately. - Post Discharge Activity
[2018-02-10 03:47] VITALS: BP 116/71; PULSE 61; TEMP 97.6
== END 2018-02-10 03:47 | disposition home or self-care (01) ==
LOC: JER 23:11
PROC: 3E033GC Introduction of Other Therapeutic Substance into Peripheral Vein, Percutaneous Approach (ICD-10-PCS; principal; 2018-02-09)
PROC: 3E033GC Introduction of Other Therapeutic Substance into Peripheral Vein, Percutaneous Approach (ICD-10-PCS; 2018-02-09)
DX: G43.A0 Cyclical vomiting, in migraine, not intractable (principal); Z87.19 Personal history of other diseases of the digestive system
CPT/HCPCS: 36415; 80053; 83690; 85025; 96374; 96375; 99282-25

== ENCOUNTER 2018-02-10 11:03 | Emergency (ER) | payer OTHER ==
[2018-02-10 11:09] VITALS: TEMP 98.4; BMI 17.9
--- NOTE | 2018-02-10 11:18 | PDOC ---
History of Present Illness - General Chief Complaint: Vomiting/Diarrhea Stated Complaint: Vomiting Blood Time Seen by Provider: 02/10/18 11:10 - History of Present Illness Initial Comments: 02/10/18 11:22 Mr. Edwards is a 22 yo male w/ pmh of brain tumor resection (age 12), EDG 2016 w/ dx of duodenitis and gastritis who represents for evaluation of nausea/ vomiting/diarrhea continued from last night. He reports he has been vomiting innumerable times and that it has consisted of mostly food and bile with now occasional red tinge. He also reports that he has had some associated diarrhea as well. The patient denies chest pain, shortness of breath, headache and dizziness. Denies fever, chills, and constipation. Denies dysuria, frequency, urgency and hematuria. Allergies: Cefaclor Past History - Past Medical History Allergies/Adverse Reactions: Allergies Allergy/AdvReac Type Severity Reaction Status Date / Time cefaclor [From [facility]] Allergy Severe "throat Verified 02/10/18 11:06 swelling" Home Medications: Ambulatory Orders Ondansetron [Zofran Odt -] 4 mg SL TID PRN #21 od.tablet 09/29/17 Pantoprazole Sodium [Protonix -] 40 mg PO DAILY #30 tablet.ec 10/01/17 Ondansetron [Zofran Odt -] 4 mg SL TID #21 od.tablet 02/10/18 Ondansetron [Zofran Odt -] 4 mg SL TID #21 od.tablet 02/10/18 Asthma: Yes COPD: No Thyroid Disease: No - Surgical History Abdominal Surgery: Yes Appendectomy: Yes Neurologic Surgery: Yes (Tumor Removal 2007) - Suicide/Smoking/Psychosocial Hx Smoking History: Never smoked Have you smoked in the past 12 months: No Information on smoking cessation initiated: No Hx Alcohol Use: No Drug/Substance Use Hx: No Substance Use Type: None Review of Systems - Review of Systems Comments:: 02/10/18 11:40 GENERAL/CONSTITUTIONAL: No fever or chills. No weakness. HEAD, EYES, EARS, NOSE AND THROAT: No change in vision. No ear pain or discharge. No sore throat. CARDIOVASCULAR: No chest pain or shortness of breath RESPIRATORY: No cough, wheezing, or hemoptysis. GASTROINTESTINAL: +Nausea/vomiting as described. Some diarrhea this AM as well. No constipation. GENITOURINARY: No dysuria, frequency, or change in urination. MUSCULOSKELETAL: No joint or muscle swelling or pain. No neck or back pain. SKIN: No rash NEUROLOGIC: No headache, vertigo, loss of consciousness, or change in strength/ sensation. ENDOCRINE: No increased thirst. No abnormal weight change HEMATOLOGIC/LYMPHATIC: No anemia, easy bleeding, or history of blood clots. ALLERGIC/IMMUNOLOGIC: No hives or skin allergy. *Physical Exam - Vital Signs Last Vital Signs Temp Pulse Resp BP Pulse Ox 98.4 F 70 18 136/68 100 02/10/18 11:07 02/10/18 11:07 02/10/18 11:07 02/10/18 11:07 02/10/18 11:07 - Physical Exam Comments: 02/10/18 11:40 GENERAL: Awake, alert, and fully oriented, in no acute distress HEAD: No signs of trauma, normocephalic, atraumatic EYES: PERRLA, EOMI, sclera anicteric, conjunctiva clear ENT: Auricles normal inspection, hearing grossly normal, nares patent, oropharynx clear without exudates. Moist mucosa NECK: Normal ROM, supple, no lymphadenopathy, JVD, or masses LUNGS: No distress, speaks full sentences, clear to auscultation bilaterally HEART: Regular rate and rhythm, normal S1 and S2, no murmurs, rubs or gallops, peripheral pulses normal and equal bilaterally. ABDOMEN: +Generalized discomfort without pain on palpation. Soft, nontender, normoactive bowel sounds. No guarding, no rebound. No masses EXTREMITIES: Normal inspection, Normal range of motion, no edema. No clubbing or cyanosis. NEUROLOGICAL: Cranial nerves II through XII grossly intact. Normal speech, normal gait, no focal sensorimotor deficits SKIN: Warm, Dry, normal turgor, no rashes or lesions noted. ED Treatment Course - LABORATORY CBC & Chemistry Diagram: 02/10/18 12:09 02/10/18 12:09 Medical Decision Making - Medical Decision Making 02/10/18 14:20 Mr. Edwards is a 22 yo male w/ pmh as described who presents for evaluation of nausea/vomiting/diarrhea. Patient able to successfully pass PO challenge in ER and has had no further episodes of N/V/D after metaclopramide, ativan, and fluids. Utox positive for THC as below. Counceled that this may be exacerbating his vomiting. US negative for acute cholecystitis or biliary tract dilation. Discharging to home w/ instructions to f/u with GI for further evaluation. Patient verbalized understanding and agreement and will comply. Laboratory Results - last 24 hr 02/10/18 02/10/18 02/10/18 12:09 12:09 16:40 WBC 14.4 H RBC 4.76 Hgb 14.3 Hct 42.8 MCV 89.9 MCH 29.9 MCHC 33.3 RDW 13.5 Plt Count 262 MPV 9.9 Neutrophils % 87.6 H Lymphocytes % 6.4 L Monocytes % 4.7 Eosinophils % 0.0 D Basophils % 1.3 D Sodium 138 Potassium 4.3 Chloride 100 Carbon Dioxide 27 Anion Gap 11 BUN 7 D Creatinine 0.9 Creat Clearance w eGFR > 60 Random Glucose 100 Calcium 9.8 Total Bilirubin 0.5 AST 24 ALT 27 Alkaline Phosphatase 75 Total Protein 8.3 H Albumin 4.5 Lipase 297 Opiates Screen Negative Methadone Screen Negative Barbiturate Screen Negative Phencyclidine Screen Negative Ur Amphetamines Screen Negative MDMA (Ecstasy) Screen Negative Benzodiazepines Screen Negative Cocaine Screen Negative U Marijuana (THC) Screen Positive *DC/Admit/Observation/Transfer Diagnosis at time of Disposition: Nausea & vomiting Qualifiers: Vomiting type: unspecified Vomiting Intractability: non-intractable Qualified Code(s): R11.2 - Nausea with vomiting, unspecified - Discharge Dispostion Disposition: HOME - Prescriptions Prescriptions: Ondansetron [Zofran Odt -] 4 mg SL TID #21 od.tablet - Referrals Referrals: Ike Peraza MD [Staff Physician] - - Patient Instructions Printed Discharge Instructions: Nausea and Vomiting-Adult Additional Instructions: Please take zofran as instructed for further nausea/vomiting. Follow-up with GI as discussed for further evaluation. Return to ER if any pain, uncontrollable nausea/vomiting, or inability to retain food/fluids. We hope you feel better soon. - Post Discharge Activity
[2018-02-10] MEDS ORDERED: SODIUM CHLORIDE 1,000 ML IV STA (11:21)
[2018-02-10] MEDS ORDERED: ONDANSETRON 4 MG/2 ML VIAL IVPUSH ONE ×2 (11:21→15:01)
[2018-02-10] MEDS ORDERED: METOCLOPRAMIDE HCL INJECTION 10 MG/2 ML VIAL IVPB ONE (11:34)
[2018-02-10] MEDS ORDERED: METOCLOPRAMIDE HCL INJECTION 10 MG/2 ML VIAL ONE (11:45)
[2018-02-10] MEDS ORDERED: LORazepam 2 MG/ML SDV VIAL ONE (11:46)
[2018-02-10 12:19] LABS: BASO % 1.3 % (0-2.0); HEMATOCRIT 42.8 % (35.4-49); HEMOGLOBIN 14.3 GM/dL (11.7-16.9); LYMPH % 6.4 % (8-40); MCH 29.9 pg (25.7-33.7); MCHC 33.3 g/dl (32.0-35.9); MEAN CELL VOLUME 89.9 fl (80-96); MEAN PLT VOLUME 9.9 fl (7.5-11.1); MONO % 4.7 % (3.8-10.2); NEUT % 87.6 % (42.8-82.8); PLATELET COUNT 262 K/MM3 (134-434); RBC 4.76 M/mm3 (4.00-5.60); RDW 13.5 % (11.9-15.9); WHITE BLOOD COUNT 14.4 K/mm3 (4.0-10.0)
[2018-02-10 12:43] LABS: ALBUMIN 4.5 g/dl (3.4-5.0); ALK PHOS 75 U/L (45-117); ANION GAP 11 (8-16); BILIRUBIN,TOTAL 0.5 mg/dL (0.2-1.0); BLOOD UREA NITROGEN 7 mg/dL (7-18); CALCIUM 9.8 mg/dL (8.5-10.1); CHLORIDE 100 mmol/L (98-107); CO2 27 mmol/L (21-32); CREATININE 0.9 mg/dL (0.7-1.3); GLUCOSE,RANDOM 100 mg/dL (74-106); POTASSIUM 4.3 mmol/L (3.5-5.1); SGOT/AST 24 U/L (15-37); SGPT/ALT 27 U/L (12-78); SODIUM 138 mmol/L (136-145); TOT PROT 8.3 g/dl (6.4-8.2)
--- NOTE | 2018-02-10 14:54 | PDOC ---
Attending Attestation - ED Attending Attestation I have performed the following: I have examined & evaluated the patient, The case was reviewed & discussed with the resident, I agree w/resident's findings & plan, Exceptions are as noted - Medical Decision Making 02/10/18 14:52 22 yo male with h/o intractable vomiting, prior egd, here with vomiting. threw up 6 times last pm. was seen in ed night prior with normal labs evaluation, mild elevated wbc. pt improved with reglan and ativan. d/w mother and pt regarding followup. recommend GI and pcp followup. dc with antiemetics. tolerating PO in ed. 02/10/18 15:00 pt was seen for similar in september, had ct a/p at that time, which was unremarkable. noted appy clips, and us with mild bile duct dilation. <Magy Starr - Last Filed: 02/10/18 15:00> - HPI HPI: 02/10/18 15:42 Pt is a 22 yo M with a PMHx of brain tumor resection (age 12), duodenitis and gastritis who presents to the ED with nausea, vomiting, diarrhea for the past day. Patient reports multiple episodes of vomiting (bilious, blood-tinged). Patient denies any recent use of abx, recent travel or sick contacts. Patient denies fever or chills. Allergies: Cefaclor PCP: None - Physicial Exam PE: 02/10/18 15:42 GENERAL: Awake, alert, and fully oriented, in no acute distress HEAD: No signs of trauma EYES: PERRLA, EOMI, sclera anicteric, conjunctiva clear ENT: Auricles normal inspection, nares patent, Moist mucosa NECK: Normal ROM, supple, no lymphadenopathy, JVD, or masses LUNGS: Breath sounds equal, clear to auscultation bilaterally. No wheezes, and no crackles HEART: Regular rate and rhythm, normal S1 and S2, no murmurs, rubs or gallops ABDOMEN: +Mild epigastric tenderness. Soft, nontender, normoactive bowel sounds. No guarding, no rebound. No masses EXTREMITIES: Normal range of motion, no edema. No clubbing or cyanosis. No cords, erythema, or tenderness NEUROLOGICAL: Normal speech SKIN: Warm, Dry, normal turgor, no rashes or lesions noted. - Medical Decision Making 02/10/18 15:42 Documentation prepared by Binta Garcia, acting as biomedical engineering technologist for Magy Starr MD, MD/DO. <Binta Garcia - Last Filed: 02/10/18 15:43>
[2018-02-10 15:35] LABS: LIPASE 297 U/L (73-393)
[2018-02-10] MEDS ORDERED: ONDANSETRON 4 MG/2 ML VIAL ONE (16:03)
[2018-02-10 17:06] LABS: URINE AMPHETAMINES NEGATIVE ng/ml (CUTOFF=500)
[2018-02-10 17:07] LABS: COCAINE, UR NEGATIVE ng/ml (CUTOFF=300); METHADONE, UR NEGATIVE ng/ml (CUTOFF=300); OPIATES, URI NEGATIVE ng/ml (CUTOFF=300); PHENCYCLIDINE,URINE NEGATIVE ng/ml (CUTOFF=25); URINE BARBITURATES NEGATIVE ng/ml (CUTOFF=200); URINE BENZODIAZEPINES NEGATIVE ng/ml (CUTOFF=200)
[2018-02-10 19:03] VITALS: BP 127/81; PULSE 84
== END 2018-02-10 18:58 | disposition home or self-care (01) ==
LOC: JER 11:03
PROC: 3E0337Z Introduction of Electrolytic and Water Balance Substance into Peripheral Vein, Percutaneous Approach (ICD-10-PCS; principal; 2018-02-10)
PROC: 3E033NZ Introduction of Analgesics, Hypnotics, Sedatives into Peripheral Vein, Percutaneous Approach (ICD-10-PCS; 2018-02-10)
PROC: 3E033GC Introduction of Other Therapeutic Substance into Peripheral Vein, Percutaneous Approach (ICD-10-PCS; 2018-02-10)
PROC: 3E033GC Introduction of Other Therapeutic Substance into Peripheral Vein, Percutaneous Approach (ICD-10-PCS; 2018-02-10)
DX: R19.8 Other specified symptoms and signs involving the digestive system and abdomen (principal); R11.2 Nausea with vomiting, unspecified; Z87.19 Personal history of other diseases of the digestive system; Z98.890 Other specified postprocedural states
CPT/HCPCS: 36415; 76705-TC; 80053; 80307; 83690; 85025; 96361; 96374; 96375; 99283-25; J7030

== ENCOUNTER 2018-02-11 03:23 | Emergency (ER) | payer OTHER ==
[2018-02-11 03:39] VITALS: BP 112/84; PULSE 58; TEMP 100; BMI 17.9
[2018-02-11] MEDS ORDERED: SODIUM CHLORIDE 1,000 ML IV STA (03:39)
--- NOTE | 2018-02-11 03:39 | PDOC ---
History of Present Illness - General Stated Complaint: ABD PAIN Time Seen by Provider: 02/11/18 03:39 History Source: Patient Exam Limitations: No Limitations - History of Present Illness Travel History: No Initial Comments: 02/11/18 05:39 22-year-old male presents to the emergency department complaining of nausea/ vomiting 6 hours after being discharged from the emergency department for similar symptoms. Patient states he hasn't really eaten or drank as much fluids since being discharged earlier yesterday. Patient denies headache, dizziness, lightheadedness, neck pain, back pains, chest pain, shortness of breath, abdominal pains, flank pains, urinary symptoms. Patient states once he gets Zofran, he will feel fine. Past History - Past Medical History Allergies/Adverse Reactions: Allergies Allergy/AdvReac Type Severity Reaction Status Date / Time cefaclor [From Ceclor] Allergy Severe "throat Verified 02/11/18 03:39 swelling" Home Medications: Ambulatory Orders Ondansetron [Zofran Odt -] 4 mg SL BID PRN 02/11/18 Asthma: Yes COPD: No Thyroid Disease: No - Surgical History Abdominal Surgery: Yes Appendectomy: Yes Neurologic Surgery: Yes (Tumor Removal 2007) - Suicide/Smoking/Psychosocial Hx Smoking History: Never smoked Have you smoked in the past 12 months: No Information on smoking cessation initiated: No Hx Alcohol Use: No Drug/Substance Use Hx: No Substance Use Type: None Review of Systems - Review of Systems Able to Perform ROS?: Yes Comments:: 02/11/18 05:38 CONSTITUTIONAL: Absent: fever, chills, diaphoresis, generalized weakness, malaise, loss of appetite HEENT: Absent: rhinorrhea, nasal congestion, throat pain, throat swelling, difficulty swallowing, mouth swelling, ear pain, eye pain, visual Changes CARDIOVASCULAR: Absent: chest pain, loss of consciousness, palpitations, irregular heart rate, peripheral edema RESPIRATORY: Absent: cough, shortness of breath, dyspnea with exertion, orthopnea, wheezing, stridor, hemoptysis GASTROINTESTINAL: +n/v Absent: abdominal pain, abdominal distension, diarrhea, constipation, melena, hematochezia GENITOURINARY: Absent: dysuria, frequency, urgency, hesitancy, hematuria, flank pain, genital pain MUSCULOSKELETAL: Absent: myalgia, arthralgia, joint swelling SKIN: Absent: rash, itching, pallor Is the patient limited Indian proficient: No *Physical Exam - Vital Signs Last Vital Signs Temp Pulse Resp BP Pulse Ox 100.0 F H 58 L 18 112/84 99 02/11/18 03:38 02/11/18 03:38 02/11/18 03:38 02/11/18 03:38 02/11/18 03:38 - Physical Exam Comments: 02/11/18 05:38 GENERAL: Well developed, well nourished. Awake and alert. No acute distress. HEENT: Normocephalic, atraumatic. PERRLA, EOMI. No conjunctival pallor. Sclera are non- icteric. Moist mucous membranes. Oropharynx is clear. NECK: Supple. Full ROM. No JVD. Carotid pulses 2+ and symmetric, without bruits. No thyromegaly. No lymphadenopathy. CARDIOVASCULAR: Regular rate and rhythm. No murmurs, rubs, or gallops. Distal pulses are 2+ and symmetric. PULMONARY: No evidence of respiratory distress. Lungs clear to auscultation bilaterally. No wheezing, rales or rhonchi. ABDOMINAL: Soft. Non-tender. Non-distended. No rebound or guarding. No organomegaly. Normoactive bowel sounds. MUSCULOSKELETAL Normal range of motion at all joints. No bony deformities or tenderness. No CVA tenderness. EXTREMITIES: No cyanosis. No clubbing. No edema. No calf tenderness. SKIN: Warm and dry. Normal capillary refill. No rashes. No jaundice. NEUROLOGICAL: Alert, awake, appropriate. Cranial nerves 2-12 intact. No deficits to light touch and temperature in face, upper extremities and lower extremities. No motor deficits in the in face, upper extremities and lower extremities. Normoreflexic in the upper and lower extremities. Normal speech. Toes are down- going bilaterally. Gait is normal without ataxia. PSYCHIATRIC: Cooperative. Good eye contact. Appropriate mood and affect. ED Treatment Course - LABORATORY CBC & Chemistry Diagram: 02/11/18 03:41 02/11/18 03:41 Progress Note - Progress Note Progress Note: 0446hrss: PO challenge. Pt felt "fine 0538hrs: PO challenge. Pt says hes ready to be d/c to go home to sleep *DC/Admit/Observation/Transfer Diagnosis at time of Disposition: Nausea & vomiting Qualifiers: Vomiting type: unspecified Vomiting Intractability: non-intractable Qualified Code(s): R11.2 - Nausea with vomiting, unspecified - Discharge Dispostion Disposition: HOME Condition at time of disposition: Stable Admit: No - Referrals Referrals: Nils Davis MD [Staff Physician] - - Patient Instructions Printed Discharge Instructions: Nausea and Vomiting-Adult Additional Instructions: Follow-up with the continuity reader within 48 hours Return back to the emergency department for severe/persistent or worsening symptoms - Post Discharge Activity
[2018-02-11 03:48] LABS: BASO % 0.3 % (0-2.0); EOS % 0.2 % (0-4.5); HEMATOCRIT 40.5 % (35.4-49); HEMOGLOBIN 13.8 GM/dL (11.7-16.9); LYMPH % 12.9 % (8-40); MCH 30.8 pg (25.7-33.7); MCHC 34.2 g/dl (32.0-35.9); MEAN CELL VOLUME 90.1 fl (80-96); MEAN PLT VOLUME 9.8 fl (7.5-11.1); MONO % 10.5 % (3.8-10.2); NEUT % 76.1 % (42.8-82.8); PLATELET COUNT 232 K/MM3 (134-434); RDW 13.4 % (11.9-15.9); WHITE BLOOD COUNT 11.9 K/mm3 (4.0-10.0)
[2018-02-11 04:13] LABS: ALBUMIN 4.1 g/dl (3.4-5.0); ANION GAP 8 (8-16); BILIRUBIN,TOTAL 0.5 mg/dL (0.2-1.0); BLOOD UREA NITROGEN 7 mg/dL (7-18); CALCIUM 9.3 mg/dL (8.5-10.1); CHLORIDE 103 mmol/L (98-107); CO2 28 mmol/L (21-32); CREATININE 0.9 mg/dL (0.7-1.3); GLUCOSE,RANDOM 108 mg/dL (74-106); LIPASE 117 U/L (73-393); SGOT/AST 21 U/L (15-37); SGPT/ALT 24 U/L (12-78); SODIUM 139 mmol/L (136-145)
[2018-02-11 04:15] LABS: ALK PHOS 67 U/L (45-117); TOT PROT 7.3 g/dl (6.4-8.2)
[2018-02-11] MEDS ORDERED: KETOROLAC TROMETHAMINE 30 MG/1 ML VIAL ONE (04:28)
[2018-02-11] MEDS ORDERED: KETOROLAC TROMETHAMINE 30 MG/1 ML VIAL IVPUSH ONE (04:30)
[2018-02-11] MEDS ORDERED: ONDANSETRON 4 MG/2 ML VIAL IVPUSH ONE (04:50)
[2018-02-11] MEDS ORDERED: ONDANSETRON 4 MG/2 ML VIAL ONE (04:56)
== END 2018-02-11 07:34 | disposition home or self-care (01) ==
LOC: JER 03:23
DX: R11.2 Nausea with vomiting, unspecified (principal)
CPT/HCPCS: 36415; 80053; 83690; 85025; 99283-25; J7030

== ENCOUNTER 2018-03-13 11:55 | Emergency (ER) | payer OTHER ==
[2018-03-13 12:11] VITALS: BP 140/98; PULSE 67; TEMP 98.1; BMI 18.4
[2018-03-13] MEDS ORDERED: METOCLOPRAMIDE HCL INJECTION 10 MG/2 ML VIAL IVPB ONE (12:38)
[2018-03-13] MEDS ORDERED: SODIUM CHLORIDE 1,000 ML IV STA (12:38)
[2018-03-13] MEDS ORDERED: METOCLOPRAMIDE HCL INJECTION 10 MG/2 ML VIAL ONE (13:05)
[2018-03-13 13:17] LABS: BASO % 0.1 % (0-2.0); EOS % 1.1 % (0-4.5); HEMATOCRIT 43.7 % (35.4-49); HEMOGLOBIN 15.2 GM/dL (11.7-16.9); LYMPH % 9.3 % (8-40); MCH 31.3 pg (25.7-33.7); MCHC 34.7 g/dl (32.0-35.9); MEAN CELL VOLUME 90.2 fl (80-96); MEAN PLT VOLUME 10.8 fl (7.5-11.1); MONO % 4.6 % (3.8-10.2); NEUT % 84.9 % (42.8-82.8); PLATELET COUNT 199 K/MM3 (134-434); RBC 4.84 M/mm3 (4.00-5.60); RDW 13.7 % (11.9-15.9); WHITE BLOOD COUNT 11.1 K/mm3 (4.0-10.0)
[2018-03-13 13:39] LABS: ALBUMIN 4.4 g/dl (3.4-5.0); ANION GAP 7 (8-16); BILIRUBIN,TOTAL 0.5 mg/dL (0.2-1.0); CALCIUM 9.2 mg/dL (8.5-10.1); CHLORIDE 103 mmol/L (98-107); CO2 29 mmol/L (21-32); CREATININE 0.9 mg/dL (0.7-1.3); GLUCOSE,RANDOM 92 mg/dL (74-106); LIPASE 120 U/L (73-393); SGPT/ALT 18 U/L (12-78); SODIUM 139 mmol/L (136-145); TOT PROT 7.6 g/dl (6.4-8.2)
[2018-03-13 13:42] LABS: ALK PHOS 53 U/L (45-117); BLOOD UREA NITROGEN 8 mg/dL (7-18); MAGNESIUM 2.1 mg/dL (1.8-2.4); POTASSIUM 4.1 mmol/L (3.5-5.1); SGOT/AST 22 U/L (15-37)
--- NOTE | 2018-03-13 14:46 | PDOC ---
History of Present Illness - General Chief Complaint: Nausea/Vomiting Stated Complaint: SICK Time Seen by Provider: 03/13/18 12:11 History Source: Patient Exam Limitations: No Limitations - History of Present Illness Travel History: No Initial Comments: 03/13/18 14:40 22 y/o male presents to the Ed for continual n/v weakness intermittently x 1 year. Pt is under the care of Dr. reyes and has an appt tomorrow but due to continual n/v weakness x 4 days, he decided to come to the ED today. Pt denies fever, abd pain, diarrhea, or difficulty breathing, or cough. Pt on zofran but states it does not work. Pt states had an endoscopy earlier this year which he states was told he had some edema in his esophagus. Ptr denies bloody emesis. Timing/Duration: reports: getting worse Quality: reports: moderate Pain Radiation: reports: no radiation Aggravating Factors: improves with: Eating Alleviating Factors: improves with: Vomiting Past History - Travel Traveled outside of the country in the last 30 days: No - Past Medical History Allergies/Adverse Reactions: Allergies Allergy/AdvReac Type Severity Reaction Status Date / Time cefaclor [From Ceclor] Allergy Severe "throat Verified 03/13/18 12:08 swelling" Home Medications: Ambulatory Orders NK [No Known Home Medication] 03/13/18 Asthma: Yes COPD: No Thyroid Disease: No - Surgical History Abdominal Surgery: Yes Appendectomy: Yes Neurologic Surgery: Yes (Tumor Removal 2007) - Suicide/Smoking/Psychosocial Hx Smoking History: Never smoked Have you smoked in the past 12 months: No Information on smoking cessation initiated: No Hx Alcohol Use: No Drug/Substance Use Hx: No Substance Use Type: None Patient Lives Alone: No Lives with/in: parents Abd/GI Specific PMHX - Complaint Specific PMHX Gall Bladder Disease: No GERD: Yes GI Ulcer Disease: No Review of Systems - Review of Systems Able to Perform ROS?: No Constitutional: Yes: Loss of Appetite, Weakness HEENTM: No: Symptoms Reported Respiratory: No: Symptoms reported Cardiac (ROS): Yes: Lightheadedness ABD/GI: Yes: Nausea, Poor Appetite, Poor Fluid Intake, Vomiting. No: Abdominal cramping : No: Symptoms Reported Musculoskeletal: No: Symptoms Reported Integumentary: No: Symptoms Reported Neurological: Yes: Weakness Endocrine: No: Symptoms Reported *Physical Exam - Vital Signs Last Vital Signs Temp Pulse Resp BP Pulse Ox 98.1 F 67 20 140/98 100 03/13/18 12:09 03/13/18 12:09 03/13/18 12:09 03/13/18 12:09 03/13/18 12:09 - Physical Exam General Appearance: Yes: Nourished, Appropriately Dressed. No: Apparent Distress HEENT: positive: RICCI, TMs Normal, Pharynx Normal (dry) Neck: positive: Supple Respiratory/Chest: positive: Lungs Clear, Normal Breath Sounds. negative: Respiratory Distress, Accessory Muscle Use Cardiovascular: positive: Regular Rhythm, Regular Rate. negative: Murmur Gastrointestinal/Abdominal: positive: Soft. negative: Tenderness Musculoskeletal: negative: CVA Tenderness Integumentary: positive: Normal Color, Dry, Warm Neurologic: positive: Normal Mood/Affect, Motor Strength 5/5 (ambulatory) ED Treatment Course - LABORATORY CBC & Chemistry Diagram: 03/13/18 12:55 03/13/18 12:55 - ADDITIONAL ORDERS Additional order review: Laboratory Results 03/13/18 12:55 Sodium 139 Potassium 4.1 Chloride 103 Carbon Dioxide 29 Anion Gap 7 L BUN 8 Creatinine 0.9 Creat Clearance w eGFR > 60 Random Glucose 92 Calcium 9.2 Magnesium 2.1 Total Bilirubin 0.5 AST 22 ALT 18 D Alkaline Phosphatase 53 D Total Protein 7.6 Albumin 4.4 Lipase 120 03/13/18 12:55 RBC 4.84 MCV 90.2 MCHC 34.7 RDW 13.7 MPV 10.8 D Neutrophils % 84.9 H Lymphocytes % 9.3 D Monocytes % 4.6 Eosinophils % 1.1 D Basophils % 0.1 - Medications Given in the ED: ED Medications Discontinued Medications Generic Name Dose Route Start Last Admin Trade Name Freq PRN Reason Stop Dose Admin Sodium Chloride 1,000 mls @ 1,000 mls/hr 03/13/18 12:38 03/13/18 13:00 Normal Saline - IV 03/13/18 13:37 1,000 mls/hr ASDIR STA Administration Metoclopramide HCl 10 mg 03/13/18 12:38 03/13/18 13:00 Reglan Injection - IVPB 03/13/18 12:39 10 mg ONCE ONE Administration Medical Decision Making - Medical Decision Making 03/13/18 13:46 pt with continual n/v/weakness poor appetite. pt requesting dr reyes to be called. I have paged overhead and called the service. Pt on exam with no abdominal tenderness but appears dry. pt ordered for fluids, labs and urine. 03/13/18 14:48 Laboratory Tests 03/13/18 03/13/18 12:55 12:55 WBC 11.1 H Hgb 15.2 D Hct 43.7 Neutrophils % 84.9 H Sodium 139 Potassium 4.1 Chloride 103 Carbon Dioxide 29 Anion Gap 7 L BUN 8 Creatinine 0.9 Creat Clearance w eGFR > 60 Random Glucose 92 Calcium 9.2 Magnesium 2.1 Total Bilirubin 0.5 AST 22 ALT 18 D Alkaline Phosphatase 53 D Total Protein 7.6 Albumin 4.4 Lipase 120 03/13/18 14:51 Pt unable to be located when I went to reevaluate the patient. As per witnesses pt stopped his ivf and walked out. Pt believed to have his iv heplock in. Police notified and will be considered an elopement *DC/Admit/Observation/Transfer Diagnosis at time of Disposition: Nausea & vomiting - Discharge Dispostion Disposition: ELOPED Condition at time of disposition: Unchanged/Unknown - Referrals - Patient Instructions - Post Discharge Activity
--- NOTE | 2018-03-13 14:48 | PDOC ---
*Physical Exam - Vital Signs Last Vital Signs Temp Pulse Resp BP Pulse Ox 98.1 F 67 20 140/98 100 03/13/18 12:09 03/13/18 12:09 03/13/18 12:09 03/13/18 12:09 03/13/18 12:09 ED Treatment Course - LABORATORY CBC & Chemistry Diagram: 03/13/18 12:55 03/13/18 12:55 - ADDITIONAL ORDERS Additional order review: Laboratory Results 03/13/18 12:55 Sodium 139 Potassium 4.1 Chloride 103 Carbon Dioxide 29 Anion Gap 7 L BUN 8 Creatinine 0.9 Creat Clearance w eGFR > 60 Random Glucose 92 Calcium 9.2 Magnesium 2.1 Total Bilirubin 0.5 AST 22 ALT 18 D Alkaline Phosphatase 53 D Total Protein 7.6 Albumin 4.4 Lipase 120 03/13/18 12:55 RBC 4.84 MCV 90.2 MCHC 34.7 RDW 13.7 MPV 10.8 D Neutrophils % 84.9 H Lymphocytes % 9.3 D Monocytes % 4.6 Eosinophils % 1.1 D Basophils % 0.1 - Medications Given in the ED: ED Medications Discontinued Medications Generic Name Dose Route Start Last Admin Trade Name Freq PRN Reason Stop Dose Admin Sodium Chloride 1,000 mls @ 1,000 mls/hr 03/13/18 12:38 03/13/18 13:00 Normal Saline - IV 03/13/18 13:37 1,000 mls/hr ASDIR STA Administration Metoclopramide HCl 10 mg 03/13/18 12:38 03/13/18 13:00 Reglan Injection - IVPB 03/13/18 12:39 10 mg ONCE ONE Administration Medical Decision Making - Medical Decision Making 03/13/18 14:47 Pt seen by the Advanced Practice Provider under my direct supervision Ancillary studies reviewed I agree with plan as outlined by the Advanced Practice Provider MALATHI Childs *DC/Admit/Observation/Transfer Diagnosis at time of Disposition: Nausea & vomiting - Discharge Dispostion Disposition: ELP Condition at time of disposition: Unchanged/Unknown - Referrals - Patient Instructions - Post Discharge Activity
--- NOTE | 2018-03-21 11:20 | EKG ---
Test Reason : Blood Pressure : / mmHG Vent. Rate : 055 BPM Atrial Rate : 055 BPM P-R Int : 150 ms QRS Dur : 098 ms QT Int : 442 ms P-R-T Axes : 078 078 072 degrees QTc Int : 422 ms SINUS BRADYCARDIA BIATRIAL ENLARGEMENT ST ELEVATION, CONSIDER EARLY REPOLARIZATION, PERICARDITIS, OR INJURY ABNORMAL ECG WHEN COMPARED WITH ECG OF 30-SEP-2017 09:44, NO SIGNIFICANT CHANGE WAS FOUND Confirmed by GLENN SALCIDO MD ([id number]) on 03/21/2018 11:19:51 AM Referred By: Confirmed By:GLENN SALCIDO MD
== END 2018-03-13 15:01 | disposition left against medical advice (07) ==
LOC: SUPCPDRO 11:55 → JER 11:55
PROC: 3E0337Z Introduction of Electrolytic and Water Balance Substance into Peripheral Vein, Percutaneous Approach (ICD-10-PCS; principal; 2018-03-13)
DX: R11.2 Nausea with vomiting, unspecified (principal)
CPT/HCPCS: 36415; 80053; 83690; 83735; 85025; 93005; 93010; 99282-25; J7030

== ENCOUNTER 2018-08-10 13:01 | Emergency (ER) | payer OTHER ==
[2018-08-10 13:27] VITALS: TEMP 98.2; BMI 18.4
[2018-08-10] MEDS ORDERED: ONDANSETRON 4 MG/2 ML VIAL IVPUSH ONE (13:40)
[2018-08-10] MEDS ORDERED: SODIUM CHLORIDE 1,000 ML IV STA (13:40)
[2018-08-10] MEDS ORDERED: FAMOTIDINE 20 MG/50 ML IVPB 20 MG/50 ML MG IVPB ONE ×2 (13:40→13:58)
[2018-08-10] MEDS ORDERED: ONDANSETRON 4 MG/2 ML VIAL ONE (13:57)
--- NOTE | 2018-08-10 14:04 | PDOC ---
History of Present Illness - History of Present Illness Initial Comments: 22 yo M w a hx of asthma and appendectomy is here acting very dramatic, has 7 episodes of vomiting and nausea since this AM. Vomitus is yellow - NBNB. Denies any abdominal pain, not cooperative during interview. Was drinking last night and thinks he got alcohol poisoning. Had 5 cups of hennesee. He's had non-stop nausea and vomiting since awaking this morning. He also has diarrhea and loose stools - nb. He specifically asked to get zofran and IVF. Has a hx of coming here for same complaint. Denies marijuana usage. Denies f/c. denies abdominal pain, dysuria. No sick contacts. Denies SOB, or difficulty breathing. Denies chest pain. Social hx: drinks alcohol regularly. Denies using cigarettes or other illicit drugs. Pcp: Does not have one Allergies: Cefaclor <Elías Rodriguez - Last Filed: 08/10/18 18:13> <Le Gerber - Last Filed: 08/10/18 18:47> - General Chief Complaint: Nausea/Vomiting Stated Complaint: NAUSEA/VOMITING Time Seen by Provider: 08/10/18 13:33 Past History - Past Medical History Asthma: Yes CVA: No COPD: No CHF: No Thyroid Disease: No - Surgical History Abdominal Surgery: Yes Appendectomy: Yes Neurologic Surgery: Yes (Tumor Removal 2007) - Immunization History Immunization Up to Date: No - Suicide/Smoking/Psychosocial Hx Smoking History: Never smoked Have you smoked in the past 12 months: No Information on smoking cessation initiated: No Hx Alcohol Use: Yes (social) Drug/Substance Use Hx: No Substance Use Type: Alcohol <Elías Rodriguez - Last Filed: 08/10/18 18:13> <Le Gerber - Last Filed: 08/10/18 18:47> - Past Medical History Allergies/Adverse Reactions: Allergies Allergy/AdvReac Type Severity Reaction Status Date / Time cefaclor [From [facility]] Allergy Severe "throat Verified 06/19/18 18:04 swelling" Home Medications: Ambulatory Orders NK [No Known Home Medication] 03/13/18 Review of Systems - Review of Systems Able to Perform ROS?: Yes Constitutional: Yes: Chills, Loss of Appetite, Malaise, Weakness HEENTM: No: Blurred Vision, Nose Congestion, Throat Pain, Difficulty Swallowing Cardiac (ROS): No: Chest Pain, Irregular Heart Rate, Lightheadedness, Palpitations ABD/GI: Yes: Abdominal Distended, Diarrhea, Nausea, Poor Appetite, Poor Fluid Intake, Vomiting, Abdominal cramping. No: Constipated : No: Burning, Dysuria, Frequency Musculoskeletal: No: Back Pain, Joint Pain, Joint Swelling, Muscle Pain, Muscle Weakness Integumentary: No: Bruising, Change in Color, Erythema, Pallor, Pruritus Neurological: No: Headache, Numbness, Seizure, Unsteady Gait, Dizziness Psychiatric: Yes: Frequent Crying. No: Anxiety, Depression Endocrine: No: Excessive Sweating, Intolerance to Cold, Intolerance to Heat Hematologic/Lymphatic: No: Anemia, Blood Clots, Easy Bruising <Elías Rodriguez - Last Filed: 08/10/18 18:13> *Physical Exam - Vital Signs Last Vital Signs Temp Pulse Resp BP Pulse Ox 98.2 F 62 17 112/70 100 08/10/18 13:24 08/10/18 13:24 08/10/18 13:24 08/10/18 13:24 08/10/18 13:24 - Physical Exam General Appearance: Yes: Nourished, Appropriately Dressed, Moderate Distress, Thin HEENT: positive: EOMI, RICCI, Normal ENT Inspection, Normal Voice. negative: Nasal Congestion Neck: positive: Trachea midline, Supple. negative: Decreased range of motion, Lymphadenopathy (R), Lymphadenopathy (L) Respiratory/Chest: positive: Lungs Clear, Normal Breath Sounds. negative: Respiratory Distress, Crackles Cardiovascular: positive: Regular Rhythm, Regular Rate, S1, S2. negative: Edema , JVD, Murmur Vascular Pulses: Dorsalis-Pedis (R): 2+, Doralis-Pedis (L): 2+ Gastrointestinal/Abdominal: positive: Normal Bowel Sounds, Tender, Flat, Tenderness. negative: Organomegaly, Increased Bowel Sounds, Protuberent, Distended, Guarding, Rebound, Hepatomegaly Lymphatic: negative: Adenopathy Musculoskeletal: positive: Normal Inspection. negative: CVA Tenderness, Decreased Range of Motion, Vertebral Tenderness Extremity: positive: Normal Capillary Refill, Normal Inspection, Normal Range of Motion. negative: Delayed Capillary Refill Integumentary: positive: Normal Color, Dry, Warm. negative: Cyanotic, Erythema , Jaundice, Rash, Ecchymosis, Bruising Neurologic: positive: product support consultant II-XII NML intact, Fully Oriented, Alert. negative: Normal Mood/Affect <Elías Rodriguez - Last Filed: 08/10/18 18:13> - Vital Signs Last Vital Signs Temp Pulse Resp BP Pulse Ox 98.2 F 62 17 112/70 100 08/10/18 13:24 08/10/18 13:24 08/10/18 13:24 08/10/18 13:24 08/10/18 13:24 <GerberLe Real - Last Filed: 08/10/18 18:47> ED Treatment Course - LABORATORY CBC & Chemistry Diagram: 08/10/18 14:11 08/10/18 14:11 <Elías Rodriguez - Last Filed: 08/10/18 18:13> - LABORATORY CBC & Chemistry Diagram: 08/10/18 14:11 08/10/18 14:11 - ADDITIONAL ORDERS Additional order review: Laboratory Results 08/10/18 08/10/18 14:11 14:11 Sodium 140 Potassium 4.3 Chloride 105 Carbon Dioxide 26 Anion Gap 8 BUN 7 Creatinine 1.0 Creat Clearance w eGFR > 60 Random Glucose 98 Calcium 9.3 Total Bilirubin 0.4 AST 30 ALT 31 Alkaline Phosphatase 63 Total Protein 8.2 Albumin 4.6 Lipase 75 Alcohol, Quantitative 11.5 H 08/10/18 14:11 RBC 4.90 MCV 90.6 MCHC 33.0 RDW 14.2 MPV 10.0 Neutrophils % 82.4 Lymphocytes % 11.7 D Monocytes % 4.6 Eosinophils % 0.6 Basophils % 0.7 D - RADIOLOGY Radiology Studies Ordered: Category Date Time Status ABDOMEN & PELVIS CT WITH CONTR [CT] Stat CT Scan 08/10/18 15:41 Ordered - Medications Given in the ED: ED Medications Discontinued Medications Generic Name Dose Route Start Last Admin Trade Name Freq PRN Reason Stop Dose Admin Famotidine/Sodium Chloride 20 mg in 50 mls @ 100 mls/hr 08/10/18 13:40 14:15 Pepcid 20 Mg Premixed Ivpb - IVPB 08/10/18 14:09 100 mls/hr ONCE ONE Administration Sodium Chloride 1,000 mls @ 1,000 mls/hr 08/10/18 13:40 08/10/18 14:05 Normal Saline - IV 08/10/18 14:39 1,000 mls/hr ASDIR STA Administration Metoclopramide HCl 10 mg 08/10/18 15:20 08/10/18 15:39 Reglan Injection - IVPUSH 08/10/18 15:21 10 mg ONCE ONE Administration Metoclopramide HCl 10 mg 08/10/18 15:38 08/10/18 15:40 Reglan Injection - IVPUSH 08/10/18 15:39 Not Given ONCE ONE Ondansetron HCl 4 mg 08/10/18 13:40 08/10/18 14:00 Zofran Injection IVPUSH 08/10/18 13:41 4 mg ONCE ONE Administration Sodium Chloride 1,000 ml 08/10/18 15:07 08/10/18 15:23 Normal Saline - IV 08/10/18 15:08 1,000 ml ONCE ONE Administration <Le Gerber - Last Filed: 08/10/18 18:47> Medical Decision Making - Medical Decision Making 22 yo M w a hx of asthma and appendectomy is here acting very dramatic, has 7 episodes of vomiting and nausea since this AM. vomit is yellow. DD includes but not limited to: Alcohol poisoning, pancreatitis, food poisening , gastroenteritis Plan: Cbc, Cmp, lipase, Zofran, IVF - NS, Pepcid, re-assess. Cbc remarkable for WBC of 18 We believe this is a result of cyclic vomiting. Patient eloped before further medical evaluation, conclusion and diagnosis could be completed. <Elías Rodriguez - Last Filed: 08/10/18 18:13> *DC/Admit/Observation/Transfer - Discharge Dispostion Decision to Admit order: No <Elías Rodriguez - Last Filed: 08/10/18 18:13> <Le Gerber - Last Filed: 08/10/18 18:47> Diagnosis at time of Disposition: Nausea & vomiting - Discharge Dispostion Disposition: ELOPED Condition at time of disposition: Stable - Referrals Referrals: Nick Martinez MD [Staff Physician] - - Patient Instructions Printed Discharge Instructions: DI for Diarrhea and Traveler's Diarrhea -- Adult, DI for Nausea -- Adult, DI for Vomiting -- Adult Additional Instructions: YOU CAME TO THE ER BUT ELOPED BEFORE MEDICAL EVALUATION AND CONCLUSIONS COULD BE COMPLETED. PLEASE COME BACK TO THE ER SO YOU CAN BE EVALUATED. Print Language: ARMENIAN
[2018-08-10 14:17] LABS: BASO % 0.7 % (0-2.0); EOS % 0.6 % (0-4.5); HEMATOCRIT 44.4 % (35.4-49); HEMOGLOBIN 14.7 GM/dL (11.7-16.9); LYMPH % 11.7 % (8-40); MCH 29.9 pg (25.7-33.7); MEAN CELL VOLUME 90.6 fl (80-96); MONO % 4.6 % (3.8-10.2); NEUT % 82.4 % (42.8-82.8); PLATELET COUNT 243 K/MM3 (134-434); RDW 14.2 % (11.9-15.9); WHITE BLOOD COUNT 18.3 K/mm3 (4.0-10.0)
[2018-08-10 14:42] LABS: ALBUMIN 4.6 g/dl (3.4-5.0); ALK PHOS 63 U/L (45-117); ANION GAP 8 MMOL/L (8-16); BILIRUBIN,TOTAL 0.4 mg/dL (0.2-1); BLOOD UREA NITROGEN 7 mg/dL (7-18); CALCIUM 9.3 mg/dL (8.5-10.1); CHLORIDE 105 mmol/L (98-107); CO2 26 mmol/L (21-32); GLUCOSE,RANDOM 98 mg/dL (74-106); LIPASE 75 U/L (73-393); POTASSIUM 4.3 mmol/L (3.5-5.1); SGOT/AST 30 U/L (15-37); SGPT/ALT 31 U/L (13-61); SODIUM 140 mmol/L (136-145); TOT PROT 8.2 g/dl (6.4-8.2)
[2018-08-10] MEDS ORDERED: SODIUM CHLORIDE 0.9% 500 ML INFUS.BAG IV ONE (15:07)
[2018-08-10] MEDS ORDERED: METOCLOPRAMIDE HCL INJECTION 10 MG/2 ML VIAL IVPUSH ONE ×2 (15:20→15:38)
[2018-08-10] MEDS ORDERED: METOCLOPRAMIDE HCL INJECTION 10 MG/2 ML VIAL ONE (15:27)
--- NOTE | 2018-08-10 15:41 | PDOC ---
Attending Attestation - Resident Resident Name: Elías Rodriguez - ED Attending Attestation I have performed the following: I have examined & evaluated the patient, The case was reviewed & discussed with the resident, I agree w/resident's findings & plan - HPI HPI: 08/10/18 16:19 Mr. Edwards is a 22 year old male, with a signfiicant past medical history of asthma and appendectomy in 2017, cannibis use, who presents to the ED complaining of nausea and vomiting since last night. He reports that he consumed alcohol last night around 10pm. He notes that he drank H[place] last night. He notes that he has had 10 vomiting episodes since, nonbloody and nonbilious. He also reports loose stools associated with his chieg complaint. Non bloody in nature. The patient denies marijuana use. The patient has been to the ED numerous times in the past year and a half for similar complaints and has had an EGD performed before in 09/2017, which revealed Mild Gastritis and Duodenal inflammation. The patient denies chest pain, shortness of breath, headache and dizziness. Denies fever, chills, constipation. Denies dysuria, frequency, urgency and hematuria. Allergies: Cefaclor Past surgical history: Appendectomy, tumor removal (2007) Social History: Alcohol use. - Physicial Exam PE: 08/10/18 15:40 poorly cooperative, malaised appearing, PERRL, no pinpoint pupils, EOMI, no nystagmus. MMM, nl conjunctiva, anicteric; neck supple. lungs clear, RRR, abdomen soft diffusely tender, nondistended. No CVAT. [place] x4, no focal neuro deficits. No peripheral edema. normal color for ethnicity, WWP. 08/10/18 16:00 - Medical Decision Making 08/10/18 16:20 22 YOM with asthma, appendectomy, cannibis use presenting with diffuse AP, n/v, s/p ETOH use last night. +history of cannibis use. DDx abdominal pain: Renal colic, biliary colic, GERD, PUD, esophageal spasm, pancreatitis, hepatitis, colitis, gastroenteritis, cholecystitis, UTI, pyelonephritis, ileus, SBO, medication side effect, hernia, diverticulitis, cannibis induced cyclic vomiting given pepcid, IVF, zofran, reglan with minimal improvement. Abdomen nonperitoneal, but diffusely tender vitals wnl. no fever labs and lytes with leukocytosis of 18K, higher than previously has ED visits for n/v multiple times has been ambulating in the department, min distress ETOH level mildly elevated, but not clinically intoxicated. CT a/p to r/o intra abd pathology, diffuse tenderness with n/v. also with high WBC ct, occult infection/inflammation that needs further discernment. pt eloped at 5pm, unable to find in the department. did not get CT scan, unable to reach. per records, there is history of elopement. 08/10/18 17:32 08/10/18 18:46
[2018-08-10 22:42] VITALS: BP 109/62; PULSE 56
== END 2018-08-10 17:00 | disposition left against medical advice (07) ==
LOC: JER 13:01
PROC: 3E0337Z Introduction of Electrolytic and Water Balance Substance into Peripheral Vein, Percutaneous Approach (ICD-10-PCS; principal; 2018-08-10)
PROC: 3E033GC Introduction of Other Therapeutic Substance into Peripheral Vein, Percutaneous Approach (ICD-10-PCS; 2018-08-10)
PROC: 3E033GC Introduction of Other Therapeutic Substance into Peripheral Vein, Percutaneous Approach (ICD-10-PCS; 2018-08-10)
PROC: 3E033GC Introduction of Other Therapeutic Substance into Peripheral Vein, Percutaneous Approach (ICD-10-PCS; 2018-08-10)
DX: R11.2 Nausea with vomiting, unspecified (principal); F10.10 Alcohol abuse, uncomplicated
CPT/HCPCS: 36415; 80053; 80307; 83690; 85025; 96361; 96365; 96375; 99283-25; J7030

== ENCOUNTER 2018-11-10 03:16 | Emergency (ER) | payer OTHER ==
[2018-11-10 03:52] VITALS: BP 138/84; PULSE 82; BMI 18.4
--- NOTE | 2018-11-10 03:58 | PDOC ---
History of Present Illness - General Chief Complaint: Nausea Stated Complaint: NAUSEA Time Seen by Provider: 11/10/18 03:58 Past History - Past Medical History Allergies/Adverse Reactions: Allergies Allergy/AdvReac Type Severity Reaction Status Date / Time cefaclor [From Ceclor] Allergy Severe "throat Verified 06/19/18 18:04 swelling" Home Medications: Ambulatory Orders NK [No Known Home Medication] 03/13/18 Asthma: Yes CVA: No COPD: No CHF: No Thyroid Disease: No - Surgical History Abdominal Surgery: Yes Appendectomy: Yes Neurologic Surgery: Yes (Tumor Removal 2007) - Immunization History Immunization Up to Date: No - Suicide/Smoking/Psychosocial Hx Smoking History: Never smoked Have you smoked in the past 12 months: No Hx Alcohol Use: Yes (social) Drug/Substance Use Hx: No Substance Use Type: Alcohol *Physical Exam - Vital Signs Last Vital Signs Temp Pulse Resp BP Pulse Ox 98.9 F 82 19 138/84 100 11/10/18 03:20 11/10/18 03:20 11/10/18 03:20 11/10/18 03:20 11/10/18 03:20 Moderate Sedation - Procedure Monitoring Vital Signs: Procedure Monitoring Vital Signs Temperature 98.9 F 11/10/18 03:20 Pulse Rate 82 11/10/18 03:20 Respiratory Rate 19 11/10/18 03:20 Blood Pressure 138/84 11/10/18 03:20 O2 Sat by Pulse Oximetry (%) 100 11/10/18 03:20 *DC/Admit/Observation/Transfer - Referrals Referrals: Neda Crane MD [Primary Care Provider] - - Patient Instructions - Post Discharge Activity
--- NOTE | 2018-11-10 04:07 | PDOC ---
History of Present Illness - General Chief Complaint: Nausea Stated Complaint: NAUSEA Time Seen by Provider: 11/10/18 03:58 Past History - Past Medical History Allergies/Adverse Reactions: Allergies Allergy/AdvReac Type Severity Reaction Status Date / Time cefaclor [From Ceclor] Allergy Severe "throat Verified 06/19/18 18:04 swelling" Home Medications: Ambulatory Orders NK [No Known Home Medication] 03/13/18 Asthma: Yes CVA: No COPD: No CHF: No Thyroid Disease: No - Surgical History Abdominal Surgery: Yes Appendectomy: Yes Neurologic Surgery: Yes (Tumor Removal 2007) - Immunization History Immunization Up to Date: No - Suicide/Smoking/Psychosocial Hx Smoking History: Never smoked Have you smoked in the past 12 months: No Hx Alcohol Use: Yes (social) Drug/Substance Use Hx: No Substance Use Type: Alcohol *Physical Exam - Vital Signs Last Vital Signs Temp Pulse Resp BP Pulse Ox 98.9 F 82 19 138/84 100 11/10/18 03:20 11/10/18 03:20 11/10/18 03:20 11/10/18 03:20 11/10/18 03:20 Moderate Sedation - Procedure Monitoring Vital Signs: Procedure Monitoring Vital Signs Temperature 98.9 F 11/10/18 03:20 Pulse Rate 82 11/10/18 03:20 Respiratory Rate 19 11/10/18 03:20 Blood Pressure 138/84 11/10/18 03:20 O2 Sat by Pulse Oximetry (%) 100 11/10/18 03:20 ED Treatment Course - LABORATORY CBC & Chemistry Diagram: 11/10/18 04:16 11/10/18 04:16 *DC/Admit/Observation/Transfer Diagnosis at time of Disposition: Cyclical vomiting syndrome, Gastroenteritis - Discharge Dispostion Disposition: HOME Condition at time of disposition: Improved Decision to Admit order: No - Referrals Referrals: Neda Crane MD [Primary Care Provider] - Rod Hankins MD [Staff Physician] - - Patient Instructions Printed Discharge Instructions: Gastroenteritis Diet - Post Discharge Activity
[2018-11-10] MEDS ORDERED: ONDANSETRON 4 MG/2 ML VIAL IVPB ONE (04:15)
[2018-11-10] MEDS ORDERED: SODIUM CHLORIDE 0.9% 500 ML INFUS.BAG IV ONE (04:18)
[2018-11-10] MEDS ORDERED: ONDANSETRON 4 MG/2 ML VIAL ONE (04:18)
[2018-11-10 04:34] VITALS: TEMP 98.8
[2018-11-10 04:39] LABS: BASO % 0.1 % (0-2.0); EOS % 0.2 % (0-4.5); HEMATOCRIT 47.3 % (35.4-49); HEMOGLOBIN 16.6 GM/dL (11.7-16.9); LYMPH % 13.8 % (8-40); MCH 31.6 pg (25.7-33.7); MCHC 35.2 g/dl (32.0-35.9); MEAN CELL VOLUME 89.7 fl (80-96); MEAN PLT VOLUME 10.5 fl (7.5-11.1); MONO % 8.4 % (3.8-10.2); NEUT % 77.5 % (42.8-82.8); PLATELET COUNT 269 K/MM3 (134-434); RBC 5.27 M/mm3 (4.00-5.60); RDW 13.9 % (11.9-15.9); WHITE BLOOD COUNT 15.4 K/mm3 (4.0-10.0)
[2018-11-10 05:01] LABS: ALBUMIN 5.1 g/dl (3.4-5.0); ALK PHOS 70 U/L (45-117); ANION GAP 8 MMOL/L (8-16); BILIRUBIN,TOTAL 1.1 mg/dL (0.2-1); BLOOD UREA NITROGEN 12 mg/dL (7-18); CALCIUM 10.2 mg/dL (8.5-10.1); CHLORIDE 96 mmol/L (98-107); CO2 29 mmol/L (21-32); CREATININE 1.1 mg/dL (0.55-1.3); GLUCOSE,RANDOM 104 mg/dL (74-106); LIPASE 135 U/L (73-393); POTASSIUM 3.9 mmol/L (3.5-5.1); SGOT/AST 18 U/L (15-37); SGPT/ALT 31 U/L (13-61); SODIUM 134 mmol/L (136-145)
[2018-11-10 05:03] LABS: AMYLASE 85 U/L (25-115)
[2018-11-10] MEDS ORDERED: DEXTROSE 5%-LACTATED RINGERS 1,000 ML IV SCH (05:15)
[2018-11-10] MEDS ORDERED: METOCLOPRAMIDE HCL INJECTION 10 MG/2 ML VIAL IVPUSH ONE (05:20)
[2018-11-10] MEDS ORDERED: METOCLOPRAMIDE HCL INJECTION 10 MG/2 ML VIAL ONE (05:23)
== END 2018-11-10 05:37 | disposition home or self-care (01) ==
LOC: JER 03:16
PROC: 3E033GC Introduction of Other Therapeutic Substance into Peripheral Vein, Percutaneous Approach (ICD-10-PCS; principal; 2018-11-10)
PROC: 3E0337Z Introduction of Electrolytic and Water Balance Substance into Peripheral Vein, Percutaneous Approach (ICD-10-PCS; 2018-11-10)
DX: G43.A0 Cyclical vomiting, in migraine, not intractable (principal); K52.9 Noninfective gastroenteritis and colitis, unspecified
CPT/HCPCS: 36415; 80053; 82150; 82550; 82553; 83690; 84484; 85025; 99283-25

== ENCOUNTER 2021-06-02 08:15 | Emergency (ER) | payer OTHER ==
[2021-06-02 08:59] VITALS: BP 111/65; PULSE 77; TEMP 98.1; BMI 17.1
== END 2021-06-02 09:23 | disposition left against medical advice (07) ==
LOC: JER 08:15
DX: F22 Delusional disorders (principal)
CPT/HCPCS: 99281-25

== ENCOUNTER 2025-04-11 07:06 | Inpatient (IN) | payer OTHER ==
[2025-04-11] MEDS ORDERED: HALOPERIDOL LACTATE 5 MG/ML ONE ×2 (08:19→13:55)
[2025-04-11] MEDS: HALOPERIDOL LACTATE 5 MG/ML IM ONE ×2 (08:35→14:01)
[2025-04-11] MEDS: SODIUM CHLORIDE 0.9% 500 ML INFUS.BAG IV ONE ×2 (08:35→19:31)
[2025-04-11] MEDS ORDERED: ONDANSETRON 4 MG/2 ML VIAL ONE ×2 (11:31→13:55)
[2025-04-11] MEDS: ONDANSETRON 4 MG/2 ML VIAL IVPUSH ONE ×3 (11:35→19:26)
[2025-04-11 16:21] LABS: ABSOLUTE IMMATURE GRANULOCYTES 0.06 x10^3/uL (0.0-0.031); BASOPHILS # 0.03 x10^3/uL (0.01-0.08); EOSINOPHIL % 0.1 % (0.8-7.0); EOSINOPHILS # 0.02 x10^3/uL (0.04-0.54); HEMATOCRIT 40.6 % (40.1-51.0); MCHC 34.5 g/dl (32.3-36.5); MONOCYTE # 1.21 x10^3/uL (0.30-0.82); MONOCYTE % 7.9 % (5.3-12.2); PLATELET COUNT 270 x10^3/uL (163-337); RDW 13.5 % (11.9-15.3)
[2025-04-11 16:40] LABS: POTASSIUM 3.6 mmol/L (3.5-5.1)
[2025-04-11 16:46] LABS: ALBUMIN 4.2 g/dl (3.4-5.0); BLOOD UREA NITROGEN 10.4 mg/dL (7-18); CALCIUM 9.8 mg/dL (8.5-10.1); MAGNESIUM 2.5 mg/dL (1.8-2.4)
[2025-04-11 16:49] LABS: CREATININE 0.9 mg/dL (0.55-1.3)
[2025-04-11 16:51] LABS: BILIRUBIN,TOTAL 0.9 mg/dL (0.2-1); TOT PROT 7.4 g/dl (6.4-8.2)
[2025-04-11] MEDS ORDERED: KETOROLAC TROMETHAMINE 15 MG/ML VIAL IVPUSH PRN (17:14)
[2025-04-11] MEDS ORDERED: DEXTROSE 50%-WATER 25 GM/50 ML DISP.SYRIN IVPUSH PRN (17:19)
[2025-04-11] MEDS ORDERED: diphenhydrAMINE HCL 25 MG CAPSULE (FP) PO PRN (17:29)
[2025-04-11] MEDS ORDERED: FAMOTIDINE 20 MG/50 ML IVPB 20 MG/50 ML MG IVPB ONE (19:42)
[2025-04-11] MEDS: FAMOTIDINE 20 MG/50 ML IVPB 20 MG/50 ML MG IVPB ONE (19:51)
[2025-04-11] MEDS: LACTATED RINGERS SOLUTION 1,000 ML IV STA (19:51)
[2025-04-11] MEDS: diazePAM CARPU-JECT 10 MG/2 ML DISP.SYRIN IVPUSH ONE ×2 (19:56)
[2025-04-11] MEDS ORDERED: RISPERIDONE 4 MG PO SCH (22:00)
[2025-04-11 22:27] VITALS: BMI 19.3
[2025-04-11] MEDS: MELATONIN 5 MG TABLETS PO PRN (22:55)
[2025-04-11] MEDS: ONDANSETRON 4 MG/2 ML VIAL IVPUSH PRN (22:55)
[2025-04-12 03:18] LABS: COCAINE, UR NEGATIVE (NEGATIVE); URINE BARBITURATES NEGATIVE (NEGATIVE)
[2025-04-12 03:19] LABS: METHADONE, UR NEGATIVE (NEGATIVE); OPIATES, URI NEGATIVE (NEGATIVE); PHENCYCLIDINE,URINE NEGATIVE (NEGATIVE)
[2025-04-12 03:24] LABS: URINE AMPHETAMINES NEGATIVE (NEGATIVE); URINE BENZODIAZEPINES NEGATIVE (NEGATIVE)
[2025-04-12 08:53] LABS: ABSOLUTE IMMATURE GRANULOCYTES 0.07 x10^3/uL (0.0-0.031); BASOPHILS # 0.03 x10^3/uL (0.01-0.08); EOSINOPHIL % 0.5 % (0.8-7.0); EOSINOPHILS # 0.05 x10^3/uL (0.04-0.54); HEMATOCRIT 40.4 % (40.1-51.0); HEMOGLOBIN 13.7 g/dL (13.7-17.5); MCHC 33.9 g/dl (32.3-36.5); MEAN PLT VOLUME 10.8 fl (9.4-12.4); MONOCYTE # 0.93 x10^3/uL (0.30-0.82); MONOCYTE % 8.5 % (5.3-12.2); PLATELET COUNT 260 x10^3/uL (163-337); RDW 13.3 % (11.9-15.3)
[2025-04-12 09:11] LABS: POTASSIUM 3.6 mmol/L (3.5-5.1)
[2025-04-12 09:12] LABS: CALCIUM 9.2 mg/dL (8.5-10.1)
[2025-04-12 09:13] LABS: BLOOD UREA NITROGEN 8.9 mg/dL (7-18)
[2025-04-12 09:16] LABS: CREATININE 0.8 mg/dL (0.55-1.3); PHOSPHOROUS 3.5 mg/dL (2.5-4.9)
[2025-04-12 12:47] VITALS: RESP 18
[2025-04-12] MEDS ORDERED: LORazepam 2 MG/ML SDV VIAL IVPUSH PRN (15:50)
[2025-04-12] MEDS ORDERED: DEXTROSE 50%-WATER 25 GM/50 ML DISP.SYRIN IVPUSH PRN (17:26)
[2025-04-12] MEDS ORDERED: RISPERIDONE 6 MG PO SCH (17:37)
[2025-04-12] MEDS: SODIUM CHLORIDE 1,000 ML IV SCH (18:15)
[2025-04-12] MEDS: METHYL SALICYLATE/MENTHOL 30 GM TUBE TP SCH (18:16)
[2025-04-12] MEDS: ONDANSETRON 4 MG/2 ML VIAL IVPUSH SCH (20:52)
[2025-04-12 21:56] VITALS: BP 123/77; PULSE 90; TEMP 98.2
== END 2025-04-12 22:21 | disposition left against medical advice (07) | DRG 249 ==
LOC: JER 07:06 → JERBED 14:47 → J6S 20:38 → OBSVTOIN 04-12 13:41
PROVIDERS: ADMIT Student in an Organized Health Care Education/Training Program; ATTEND Internal Medicine
DX: R11.15 Cyclical vomiting syndrome unrelated to migraine (principal); J45.909 Unspecified asthma, uncomplicated; R00.1 Bradycardia, unspecified; D72.829 Elevated white blood cell count, unspecified; F12.988 Cannabis use, unspecified with other cannabis-induced disorder; E86.0 Dehydration
CPT/HCPCS: 36415; 80048; 80053; 80307; 82962; 83690; 83735; 84100; 85025; 93005; 93010; 99285-25; G0378

== ENCOUNTER 2025-04-14 11:19 | Emergency (ER) | payer OTHER ==
[2025-04-14] MEDS ORDERED: HALOPERIDOL LACTATE 5 MG/ML ONE (13:08)
[2025-04-14] MEDS: HALOPERIDOL LACTATE 5 MG/ML IM ONE (13:13)
[2025-04-14] MEDS: SODIUM CHLORIDE 1,000 ML IV STA (13:13)
[2025-04-14] MEDS: FAMOTIDINE 20 MG/50 ML IVPB 20 MG/50 ML MG IVPB ONE (13:13)
[2025-04-14 14:35] VITALS: BP 140/82; PULSE 82; RESP 16; TEMP 98.1; BMI 21.1
== END 2025-04-14 13:40 | disposition home or self-care (01) ==
LOC: JER 11:19
PROC: 3E033GC Introduction of Other Therapeutic Substance into Peripheral Vein, Percutaneous Approach (ICD-10-PCS; principal; 2025-04-14)
DX: F12.188 Cannabis abuse with other cannabis-induced disorder (principal); R11.2 Nausea with vomiting, unspecified
CPT/HCPCS: 99284-25